=== PATIENT | female | born 1940 | race Caucasian/White ===

== ENCOUNTER 2017-01-28 08:17 | Observation (INO) | payer MEDICARE, BC ==
--- NOTE | 2017-01-28 09:18 | EDM.PDOC ---
ED HPI GI/ABDOMINAL - General Chief Complaint: Gastrointestinal Problem Stated Complaint: RECTAL BLEEDING Time Seen by Provider: 01/28/17 08:34 Source of Information: Reports: Patient, RN notes reviewed - History of Present Illness INITIAL COMMENTS - FREE TEXT/NARRATIVE: 76-year-old female was in with diarrhea and GI bleeding. She had onset of diarrhea yesterday afternoon. This was associated with some upper, pain and cramping. She then states around midnight last night, about 9 hours ago she had onset blood with the diarrhea. She states this was bright red. This continued every one to 2 hours throughout the remainder of the night continuing this morning. At this point in time she is pain-free. She's had some nausea but no vomiting. She's had no chest pain or difficulty breathing. She does have history of coronary artery disease, is on Plavix and 81 mg aspirin daily with history of 7 stents. No known history of prior GI bleeding. - Related Data Allergies/ADRs: Allergies Allergy/AdvReac Type Severity Reaction Status Date / Time No Known Allergies Allergy Verified 01/28/17 08:31 Home Meds: Home Meds Acetaminophen [Tylenol Extra Strength] 1,000 mg PO DAILY 01/28/17 [History] Carvedilol [Coreg] 6.25 mg PO BID 01/28/17 [History] Clopidogrel [Plavix] 75 mg PO DAILY 01/28/17 [History] Folic Acid 1 mg PO DAILY 01/28/17 [History] Pantoprazole Sodium [Protonix] 20 mg PO DAILY 01/28/17 [History] Rosuvastatin [Crestor] 20 mg PO DAILY 01/28/17 [History] Solifenacin [Vesicare] 5 mg PO DAILY 01/28/17 [History] amLODIPine [Norvasc] 10 mg PO DAILY 01/28/17 [History] traMADol [Ultram] 100 mg PO DAILY 01/28/17 [History] Past Medical History Cardiovascular History: Reports: Hypertension, [place], 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: Musculoskeletal History: Reports: Arthritis, Back pain, chronic Neurological History: Reports: CVA - Infectious Disease History Infectious Disease History: Reports: Chicken pox, Measles - Past Surgical History GI Surgical History: Reports: Appendectomy, Cholecystectomy Social & Family History - Tobacco Use Smoking Status *Q: Never Smoker Second Hand Smoke Exposure: No - Caffeine Use Caffeine Use: Reports: Coffee - Alcohol Use Days Per Week of Alcohol Use: 0 - Recreational Drug Use Recreational Drug Use: No ED ROS GENERAL - Review of Systems Review Of Systems: See Below Constitutional: Denies: fever, chills, diaphoresis HEENT: Denies: Sinus problem, Throat pain Respiratory: Denies: Shortness of Breath, Pleuritic Chest Pain Cardiovascular: Denies: Chest pain GI/Abdominal: Reports: Abdominal pain (Gone), Diarrhea, Hematochezia, Nausea ( Gone). Denies: Vomiting Musculoskeletal: Denies: back pain, joint pain Skin: Denies: rash Neurological: Reports: Dizziness (Mild). Denies: Difficulty Walking, Weakness ED EXAM, GI/ABD - Physical Exam Exam: See Below General Appearance: alert, no apparent distress Throat/Mouth: Other (Oral mucosa mildly dry) Neck: supple, full range of motion Respiratory/Chest: no respiratory distress, lungs clear, normal breath sounds Cardiovascular: regular rate, rhythm GI/Abdominal: soft, tenderness (Very mild upper midepigastric tenderness). No: guarding, rebound Rectal (Female) Exam: Bloody stool (small amt of bright red blood present), Heme + stool Extremities: normal inspection. No: pedal edema, leg pain Neurological: alert, oriented, no motor/sensory deficits Skin Exam: Warm, Dry, Normal color EKG INTERPRETATION EKG Date: 01/28/17 Rhythm: NSR [place]: normal P-wave: present QRS: other (Left anterior fascicular block) ST-T: other (T-wave inversion aVL) Course - Vital Signs Last Recorded V/S: Last Vital Signs Temp 98.8 F 01/28/17 08:27 Pulse 92 01/28/17 08:27 Resp 18 01/28/17 08:27 BP 167/91 H 01/28/17 08:27 Pulse Ox 95 01/28/17 08:27 Orthostatic Blood Pressure [ 152/81 Standing] Orthostatic Blood Pressure [ 156/94 Sitting] Orthostatic Blood Pressure [ 177/90 Supine] - Orders/Labs/Meds Orders: Active Orders 24 hr Category Date Time Status EKG 12 Lead [EKG Documentation Completion] [RC] STAT Care 01/28/17 08:42 Active EKG 12 Lead [EKG Documentation Completion] [RC] STAT Care 01/28/17 08:43 Inactive Orthostatic Vital Signs [RC] ASDIRECTED Care 01/28/17 09:12 Active TYPE AND SCREEN [BBK] Stat Lab 01/28/17 09:30 Received HYDROmorphone [Dilaudid] Med 01/28/17 10:05 Once 0.5 mg IVPUSH ONETIME ONE Sodium Chloride 0.9% [Normal Saline] 1,000 ml Med 01/28/17 08:45 Active IV ASDIRECTED Medication Orders Sodium Chloride (Normal Saline) 1,000 mls @ 150 mls/hr IV ASDIRECTED [facility] Last Admin: 01/28/17 09:40 Dose: 150 mls/hr Labs: Laboratory Tests 01/28/17 01/28/17 01/28/17 Range/Units 09:30 09:30 09:30 WBC 15.70 H (3.98-10.04) K/mm3 RBC 4.90 (3.98-5.22) M/mm3 Hgb 15.0 (11.2-15.7) gm/L Hct 44.4 (34.1-44.9) % MCV 90.6 (79.4-94.8) fl MCH 30.6 (25.6-32.2) pg MCHC 33.8 (32.2-35.5) g/dl RDW Std Deviation 41.8 (36.4-46.3) fL Plt Count 229 (182-369) K/mm3 MPV 10.7 (9.4-12.3) fl Neut % (Auto) 73.2 H (34.0-71.1) % Lymph % (Auto) 18.7 L (19.3-51.7) % [place] % (Auto) 6.8 (4.7-12.5) % Eos % (Auto) 0.8 (0.7-5.8) Baso % (Auto) 0.2 (0.1-1.2) % Neut # (Auto) 11.50 H (1.56-6.13) K/mm3 Lymph # (Auto) 2.93 (1.18-3.74) K/mm3 [place] # (Auto) 1.07 H (0.24-0.36) K/mm3 Eos # (Auto) 0.13 (0.04-0.36) K/mm3 Baso # (Auto) 0.03 (0.01-0.08) K/mm3 PT 10.9 (8.0-13.0) SECONDS INR 1.00 APTT 27 (22-36) SECONDS Sodium 143 (136-145) mEq/L Potassium 3.3 L (3.5-5.1) mEq/L Chloride 105 (98-107) mEq/L Carbon Dioxide 27 (21-32) mEq/L Anion Gap 14.3 (5-15) BUN 15 (7-18) mg/dL Creatinine 0.8 (0.55-1.02) mg/dL Est Cr Clr Drug Dosing 42.30 mL/min Estimated GFR (MDRD) > 60 (>60) mL/min BUN/Creatinine Ratio 18.8 H (14-18) Glucose 137 H (83-115) mg/dL Calcium 8.9 (8.5-10.1) mg/dL Total Bilirubin 1.2 H (0.2-1.0) mg/dL AST 20 (15-37) U/L ALT 32 (14-59) U/L Alkaline Phosphatase 89 (46-116) U/L Total Protein 7.2 (6.4-8.2) g/dl Albumin 3.7 (3.4-5.0) g/dl Globulin 3.5 gm/dL Albumin/Globulin Ratio 1.1 (1-2) Meds: Medications Generic Name Dose Route Start Last Admin Trade Name Freq PRN Reason Stop Dose Admin Sodium Chloride 1,000 mls @ 150 mls/hr 01/28/17 08:45 01/28/17 09:40 Normal Saline IV 150 mls/hr ASDIRECTED [facility] Administration - Re-Assessments/Exams Free Text/Narrative Re-Assessment/Exam: 01/28/17 10;00. No further bleeding or diarrhea in the time she has been here. She states this was about every hr for about the last 9 hrs. As noted on plavix and aspirin with hx of 7 cardiac stents. Hgb is good, other labs are as documented. Will admit Obs. status. Departure - Departure Time of Disposition: 10:00 Disposition: Admitted As Inpatient 65 Condition: fair Clinical Impression: GI bleeding Qualifiers: GI bleed type/associated pathology: unspecified gastrointestinal hemorrhage type Qualified Code(s): K92.2 - Gastrointestinal hemorrhage, unspecified Referrals: Ranjan Lau MD [Primary Care Provider] - Forms: ED Department Discharge ED Communication - Discussed Case With (1) Discussed Case With (1): Admitting Provider (Dr Pettit, decision to admit at about 10:00.) - My Orders Last 24 Hours: My Active Orders 01/28/17 08:42 EKG 12 Lead [EKG Documentation Completion] [RC] STAT 01/28/17 08:43 EKG 12 Lead [EKG Documentation Completion] [RC] STAT 01/28/17 08:45 Sodium Chloride 0.9% [Normal Saline] 1,000 ml IV ASDIRECTED 01/28/17 09:12 Orthostatic Vital Signs [RC] ASDIRECTED 01/28/17 09:30 TYPE AND SCREEN [BBK] Stat 01/28/17 10:05 HYDROmorphone [Dilaudid] 0.5 mg IVPUSH ONETIME ONE - Assessment/Plan Last 24 Hours: My Active Orders 01/28/17 08:42 EKG 12 Lead [EKG Documentation Completion] [RC] STAT 01/28/17 08:43 EKG 12 Lead [EKG Documentation Completion] [RC] STAT 01/28/17 08:45 Sodium Chloride 0.9% [Normal Saline] 1,000 ml IV ASDIRECTED 01/28/17 09:12 Orthostatic Vital Signs [RC] ASDIRECTED 01/28/17 09:30 TYPE AND SCREEN [BBK] Stat 01/28/17 10:05 HYDROmorphone [Dilaudid] 0.5 mg IVPUSH ONETIME ONE
[2017-01-28] MEDS: Sodium Chloride 0.9% 1,000 ML IV SCH ×2 (09:40→17:54)
[2017-01-28] MEDS ORDERED: HYDROmorphone 1 MG/ML Syringe IVPUSH ONE (10:05)
[2017-01-28] MEDS ORDERED: Diphtheria,Pertussis(Acell),Tetanus Vaccine 0.5 ML SDV inactive IM ONE (10:49)
--- NOTE | 2017-01-28 13:43 | PCM.HP ---
H&P History of Present Illness - General Date of Service: 01/28/17 Admit Problem/Dx: Admission Diagnosis/Problem Admission Diagnosis/Problem Hemorrhagic diarrhea Source of Information: Patient, Provider History Limitations: Reports: No limitations - History of Present Illness Initial Comments - Free Text/Narative: 76 year old female with chronic diarrhea, has had loose stool with mucous. This changed last night to stool with mucous and blood. The patient was unaware that it was not normal. She did not experience fever or chills however did have transient abdominal pain evening. She has experienced nausea without vomiting. Currently her Hgb is stable, stool has been sent for culture and a general surgery consult for a colonoscopy has been ordered. Onset of Symptoms: Reports: unknown/unsure Duration of Symptoms: Reports: Chronic, Getting worse Location: Reports: abdomen Quality: Reports: Same as previous episode Severity: moderate Improves with: Reports: None Worsens with: Reports: None Associated Symptoms: Reports: malaise, nausea/vomiting, weakness left back Pain Score (Numeric/FACES): 8 - Related Data Allergies/Adverse Reactions: Allergies Allergy/AdvReac Type Severity Reaction Status Date / Time No Known Allergies Allergy Verified 01/28/17 08:31 Home Medications: Home Meds Acetaminophen [Tylenol Extra Strength] 1,000 mg PO DAILY 01/28/17 [History] Carvedilol [Coreg] 6.25 mg PO BID 01/28/17 [History] Clopidogrel [Plavix] 75 mg PO DAILY 01/28/17 [History] Folic Acid 1 mg PO DAILY 01/28/17 [History] Losartan/Hydrochlorothiazide [Hyzaar 50-12.5 Tablet] 1 each PO DAILY 01/28/17 [ History] Pantoprazole Sodium [Protonix] 20 mg PO DAILY 01/28/17 [History] Rosuvastatin [Crestor] 20 mg PO DAILY 01/28/17 [History] Solifenacin [Vesicare] 5 mg PO DAILY 01/28/17 [History] amLODIPine [Norvasc] 5 mg PO DAILY 01/28/17 [History] traMADol [Ultram] 100 mg PO DAILY 01/28/17 [History] Past Medical History Cardiovascular History: Reports: Hypertension, [place], Stents Gastrointestinal History: Reports: Chronic constipation, Chronic diarrhea Genitourinary History: Reports: Other (see below) Other Genitourinary History: frequency and urgency; 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 hard of hearing. wears glasses GI Surgical History: Reports: Appendectomy, Cholecystectomy Female Surgical History: Reports: Hysterectomy Social & Family History - Family History Cardiac: Reports: [place] GI: Reports: Cirrhosis - Tobacco Use Smoking Status *Q: Never Smoker Second Hand Smoke Exposure: No - Caffeine Use Caffeine Use: Reports: None - Alcohol Use Days Per Week of Alcohol Use: 0 - Recreational Drug Use Recreational Drug Use: No H&P Review of Systems - Review of Systems: Review Of Systems: See Below General: Reports: fever, weakness. Denies: chills HEENT: Reports: no symptoms Pulmonary: Reports: No Symptoms Cardiovascular: Reports: no symptoms Gastrointestinal: Reports: Bloody stool, Diarrhea, Mucous in stool Musculoskeletal: Reports: no symptoms Skin: Reports: no symptoms Psychiatric: Reports: no symptoms Neurological: Reports: Dizziness Hematologic/Lymphatic: Reports: no symptoms Immunologic: Reports: no symptoms Exam - Exam Exam: See Below - Vital Signs Vital Signs: Last Vital Signs Temp 37.1 C 01/28/17 08:27 Pulse 77 01/28/17 10:51 Resp 18 01/28/17 10:51 BP 165/77 H 01/28/17 10:51 Pulse Ox 95 01/28/17 10:51 Weight: 72.575 kg - Exam Quality Assessment: DVT prophylaxis General: alert, oriented, cooperative HEENT: EACs clear, Nares patent, Normal nasal septum, Pupils equal, Pupils reactive Neck: supple, trachea midline Lungs: Normal respiratory effort Cardiovascular: regular rate, regular rhythm Abdomen: normal bowel sounds, soft (Female) Exam: Deferred Rectal (Female) Exam: Deferred Back Exam: normal inspection Extremities: normal pulses Skin: warm Neurological: cranial nerves intact Neuro Extensive - Mental Status: alert, oriented x3, normal mood/affect, normal cognition, memory intact Neuro Extensive - Motor, Sensory, Reflexes: CN II-XII intact Psychiatric: alert, normal affect, normal mood - Patient Data Result Diagrams: 01/29/17 07:00 01/29/17 07:00 *Q Meaningful Use (ADM) - VTE *Q VTE Criteria *Q: - Stroke *Q Stroke Criteria *Q: - AMI *Q AMI Criteria *Q: Problem List Initiated/Reviewed/Updated: Yes Orders Last 24hrs: Active Orders 24 hr Category Date Time Status Vaccines to be Administered [RC] .PRN Care 01/28/17 10:49 Active Medication Orders Sodium Chloride (Normal Saline) 1,000 mls @ 150 mls/hr IV ASDIRECTED [facility] Last Admin: 01/28/17 09:40 Dose: 150 mls/hr Assessment/Plan Comment:: Impression: Chronic diarrhea/constipation Rectal bleeding Chronic CAD with PCI HTN Hyperlipidemia Plan: Obs admission with telemetry Clear Liquids Gen surgery consult, re: colonoscopy Follow H/H Home meds Comprehensive stool studies Change meds where possible to IV Hydrate T and C if Hgb drops currently stable DVT/GI prophylaxis
[2017-01-28] MEDS ORDERED: Ondansetron 4 MG/2 ML SDV IVPUSH PRN (15:01)
[2017-01-28] MEDS ORDERED: Clopidogrel 75 MG Tab PO SCH (15:45)
[2017-01-28] MEDS: Carvedilol 6.25 MG Tab PO SCH ×2 (15:52→20:00)
[2017-01-28] MEDS: Pantoprazole 40 MG Vial IVPUSH SCH (15:52)
[2017-01-28] MEDS: Trospium 20 MG Tab PO SCH (16:01)
[2017-01-28] MEDS ORDERED: Polyethylene Glycol/Electrolytes 4,000 ML Bottle PO ONE (19:09)
--- NOTE | 2017-01-28 19:12 | PCM.CONSN ---
- General Info Date of Service: 01/28/17 - Patient Data Vitals - most recent: Last Vital Signs Temp 98.8 F 01/28/17 08:27 Pulse 65 01/28/17 15:52 Resp 18 01/28/17 10:51 BP 107/86 01/28/17 15:52 Pulse Ox 95 01/28/17 10:51 Weight - most recent: 72.575 kg I&O - last 24 hours: Intake & Output 01/28/17 01/28/17 01/28/17 07:59 15:59 23:59 Intake Total 100 Balance 100 Lab Results last 24 hrs: Laboratory Results - last 24 hr 01/28/17 Range/Units 18:00 Hgb 14.1 (11.2-15.7) gm/L Yusuf Results last 24 hrs: Microbiology 01/28/17 14:59 Helicobacter pylori Antigen - Final Stool / Feces - Stool, Formed Positive H Pylori Ag Med Orders - Current: Current Medications Carvedilol (Coreg) 6.25 mg PO BID [facility] Last Admin: 01/28/17 15:52 Dose: 6.25 mg Sodium Chloride (Normal Saline) 1,000 mls @ 150 mls/hr IV ASDIRECTED [facility] Last Admin: 01/28/17 17:54 Dose: 150 mls/hr Ondansetron HCl (Zofran) 4 mg IVPUSH Q8H PRN PRN Reason: Nausea/Vomiting Pantoprazole Sodium (Protonix Iv) 40 mg IVPUSH Q12H [facility] Last Admin: 01/28/17 15:52 Dose: 40 mg Polyethylene Glycol/Electrolytes (Golytely) 4,000 ml PO ONETIME ONE Stop: 01/28/17 19:10 Rosuvastatin Calcium (Crestor) 20 mg PO DAILY [facility] Temazepam (Restoril) 7.5 mg PO BEDTIME PRN PRN Reason: insomnia Trospium (Sanctura) 20 mg PO BIDAC [facility] Last Admin: 01/28/17 16:01 Dose: 20 mg Discontinued Medications Clopidogrel Bisulfate (Plavix) 75 mg PO DAILY [facility] Last Admin: 01/28/17 15:51 Dose: 75 mg Diphtheria/Tetanus/Acell Pertussis (Boostrix) 0.5 ml IM .ONCE ONE Stop: 01/28/17 10:50 Last Admin: 01/28/17 14:47 Dose: Not Given Hydromorphone HCl (Dilaudid) 0.5 mg IVPUSH ONETIME ONE Stop: 01/28/17 10:06 Last Admin: 01/28/17 10:18 Dose: 0.5 mg Consult PN Assessment/Plan Procedures: Procedures ASSAY OF AMYLASE (06/15/14) ASSAY OF CK (CPK) (08/03/14) ASSAY OF LIPASE (06/15/14) ASSAY OF NATRIURETIC PEPTIDE (06/15/14) ASSAY OF TROPONIN QUANT (08/03/14) ASSAY THYROID STIM HORMONE (02/24/14) CHEST X-RAY 1 VIEW FRONTAL (08/03/14) CHEST X-RAY 2VW FRONTAL&LATL (06/15/14) COMPLETE CBC W/AUTO DIFF WBC (08/03/14) COMPREHEN METABOLIC PANEL (08/03/14) CREATINE MB FRACTION (08/03/14) CT ABD & PELVIS W/O CONTRAST (06/15/15) CT ANGIOGRAPHY CHEST (06/15/14) CT HEAD/BRAIN W/O DYE (02/24/14) CT LUMBAR SPINE W/O DYE (06/23/15) DXA BONE DENSITY AXIAL (10/31/15) ECG MONIT/REPRT UP TO 48 HRS (01/26/16) ECG MONIT/REPRT UP TO 48 HRS (01/26/16) ELECTROCARDIOGRAM TRACING (08/03/14) EMERGENCY DEPT VISIT (08/03/14) EMERGENCY DEPT VISIT (02/24/14) FIBRIN DEGRADATION QUANT (02/24/16) PROTHROMBIN TIME (08/03/14) ROUTINE VENIPUNCTURE (02/24/16) THER/PROPH/DIAG INJ IV PUSH (02/24/14) TX/PRO/DX INJ NEW DRUG ADDON (02/24/14) TX/PRO/DX INJ SAME DRUG ANESTHESIOLOGIST PHYSICIAN (02/24/14) URINALYSIS AUTO W/SCOPE (08/03/14) URINE BACTERIA CULTURE (04/21/14) Problem List Initiated/Reviewed/Updated: Yes My Orders last 24 hours: My Active Orders 01/28/17 19:09 KCl/Na Sulf,Bicarb,Cl/PEG 3351 [GoLytely] 4,000 ml PO ONETIME ONE 01/28/17 Breakfast Nothing per Oral After Midnight Diet [DIET] Plan: surgical consult dictated CAN
[2017-01-28] MEDS: Temazepam 7.5 MG Cap PO PRN (20:00)
[2017-01-29] MEDS: Sodium Chloride 0.9% 1,000 ML IV SCH (00:48)
[2017-01-29] MEDS: Pantoprazole 40 MG Vial IVPUSH SCH ×2 (02:30→15:15)
[2017-01-29] MEDS: Trospium 20 MG Tab PO SCH ×2 (05:01→15:15)
--- NOTE | 2017-01-29 06:56 | CONS ---
CONSULTING PHYSICIAN: Asad Parada MD DATE OF CONSULTATION: 01/28/2017 HISTORY OF PRESENT ILLNESS: A 76-year-old female, who has been having numerous bowel movements at least 10 a day for the last year that has severely limited her ability to leave the house. The last week she has been having some pain and rectal bleeding associated with it. The stools that she has been having have been quite clear with a large amount of mucus. She has had some nausea, but no vomiting with this. Denies any weight loss. REVIEW OF SYSTEMS: Indicates no fever or chills. Does have some nausea, but no vomiting. Does have rectal bleeding and diarrhea. No joint aches and pain, dizziness or fainting, but has been falling and has a bruise on her right side where she fell against the furniture. No shortness of breath or chest pain. SOCIAL HISTORY: Never smoked. Reports some cough. She had no alcohol use. PAST MEDICAL HISTORY: Cardiovascular disease with some 7 stents on Plavix. She has had arthritis. She has history of CVA. PAST SURGICAL HISTORY: Appendectomy, cholecystectomy, and hysterectomy. FAMILY HISTORY: Not known. PHYSICAL EXAMINATION: GENERAL: Reveals an alert and cooperative female. VITAL SIGNS: Temperature 98.8, pulse 92, respirations 18, and blood pressure 176/90. HEENT: Eyes sclerae white. Extraocular muscle motion normal. Oral cavity, healthy mucous membrane with mouth and tongue. NECK: Supple. No nodes. No thyromegaly. LUNGS: Clear. No rales or rhonchi. HEART: Tones regular rate. No S3, S4, jugular venous distention. ABDOMEN: Shows some mild tenderness along the transverse colon, especially in the sigmoid area. No guarding or rebound. RECTAL: Exam as per admitting physician, bloody stools, small amount of bright red blood. EXTREMITIES: No angulation deformities. NEUROLOGIC: Alert and oriented. No sensory motor deficit. Moves all 4. SKIN: Warm and dry. PSYCH: She is alert and normal. LABORATORY DATA: Reviewed. ASSESSMENT: 1. Chronic diarrhea. 2. Coronary artery disease. 3. Rectal bleeding. PLAN: For colonoscopy. Discussed the procedure, risks, and complications. She understands and consents. MMODAL /[id number]
--- NOTE | 2017-01-29 07:10 | PCM.PREANE ---
Preanesthetic Assessment - Anesthesia/Transfusion/Family Hx Anesthesia History: Prior Anesthesia Without Reaction Family History of Anesthesia Reaction: No Transfusion History: No Prior Transfusion(s) Intubation History: Unknown - Review of Systems General: No Symptoms, Appetite (Decreased) Cardiovascular: No Symptoms (AL's noted in the past. CAD with 7 stents placed. Last Plavix dose noted on Saturday01/27/17), Dyspnea on Exertion, Lightheadedness (A little dizziness noted upon admission via H/P.) Gastrointestinal: Abdominal pain (on admission but currently better per patient. ), Diarrhea (with bloody stools noted upon admission.) Neurological: No Symptoms (History of CVA/Has had 3 strokes, most recent being in 2012), Tingling (in all four extremities noted per patient), Gait Disturbance (since stroke, and penmanship is bad since strokes.) Other: Reports: None (History of chronic back pain), Easy Bleeding, Easy Bruising (Patient on home meds of plavix for history of 7 stents, CAD, AL, and HTN.), Neck Pain (Recent neck pain noted for past 6 months.) - Physical Assessment NPO Status Date: 01/28/17 NPO Status Time: 23:55 Pulse: 80 O2 Sat by Pulse Oximetry: 95 Respiratory Rate: 16 Blood Pressure: 148/83 Temperature: 36.6 C Vital Signs: Last Vital Signs Temp 36.6 C 01/29/17 05:03 Pulse 80 01/29/17 05:03 Resp 16 01/29/17 05:03 BP 148/83 H 01/29/17 05:03 Pulse Ox 95 01/29/17 05:03 Height: 1.5 m Weight: 75.478 kg ASA Class: 3 Mental Status: Alert & Oriented x3 Airway Class: Mallampati = 3 Dentition: Reports: Dentures (upper), Caries Thyro-Mental Finger Breadths: 3 Mouth Opening Finger Breadths: 3 ROM/Head Extension: Full Lungs: Clear to auscultation, Normal respiratory effort, Decreased breath sounds , Crackles (in the bases noted) Cardiovascular: Regular Rate, Regular Rhythm - Lab Values: Laboratory Last Values WBC 15.70 K/mm3 (3.98-10.04) H 01/28/17 09:30 RBC 4.90 M/mm3 (3.98-5.22) 01/28/17 09:30 Hgb 14.1 gm/L (11.2-15.7) 01/28/17 18:00 Hct 44.4 % (34.1-44.9) 01/28/17 09:30 MCV 90.6 fl (79.4-94.8) 01/28/17 09:30 MCH 30.6 pg (25.6-32.2) 01/28/17 09:30 MCHC 33.8 g/dl (32.2-35.5) 01/28/17 09:30 RDW Std Deviation 41.8 fL (36.4-46.3) 01/28/17 09:30 Plt Count 229 K/mm3 (182-369) 01/28/17 09:30 MPV 10.7 fl (9.4-12.3) 01/28/17 09:30 Neut % (Auto) 73.2 % (34.0-71.1) H 01/28/17 09:30 Lymph % (Auto) 18.7 % (19.3-51.7) L 01/28/17 09:30 Howell % (Auto) 6.8 % (4.7-12.5) 01/28/17 09:30 Eos % (Auto) 0.8 (0.7-5.8) 01/28/17 09:30 Baso % (Auto) 0.2 % (0.1-1.2) 01/28/17 09:30 Neut # (Auto) 11.50 K/mm3 (1.56-6.13) H 01/28/17 09:30 Lymph # (Auto) 2.93 K/mm3 (1.18-3.74) 01/28/17 09:30 Howell # (Auto) 1.07 K/mm3 (0.24-0.36) H 01/28/17 09:30 Eos # (Auto) 0.13 K/mm3 (0.04-0.36) 01/28/17 09:30 Baso # (Auto) 0.03 K/mm3 (0.01-0.08) 01/28/17 09:30 PT 10.9 SECONDS (8.0-13.0) 01/28/17 09:30 INR 1.00 01/28/17 09:30 APTT 27 SECONDS (22-36) 01/28/17 09:30 Sodium 143 mEq/L (136-145) 01/28/17 09:30 Potassium 3.3 mEq/L (3.5-5.1) L 01/28/17 09:30 Chloride 105 mEq/L (98-107) 01/28/17 09:30 Carbon Dioxide 27 mEq/L (21-32) 01/28/17 09:30 Anion Gap 14.3 (5-15) 01/28/17 09:30 BUN 15 mg/dL (7-18) 01/28/17 09:30 Creatinine 0.8 mg/dL (0.55-1.02) 01/28/17 09:30 Est Cr Clr Drug Dosing 42.30 mL/min 01/28/17 09:30 Estimated GFR (MDRD) > 60 mL/min (>60) 01/28/17 09:30 BUN/Creatinine Ratio 18.8 (14-18) H 01/28/17 09:30 Glucose 137 mg/dL (83-115) H 01/28/17 09:30 Calcium 8.9 mg/dL (8.5-10.1) 01/28/17 09:30 Total Bilirubin 1.2 mg/dL (0.2-1.0) H 01/28/17 09:30 AST 20 U/L (15-37) 01/28/17 09:30 ALT 32 U/L (14-59) 01/28/17 09:30 Alkaline Phosphatase 89 U/L (46-116) 01/28/17 09:30 Total Protein 7.2 g/dl (6.4-8.2) 01/28/17 09:30 Albumin 3.7 g/dl (3.4-5.0) 01/28/17 09:30 Globulin 3.5 gm/dL 01/28/17 09:30 Albumin/Globulin Ratio 1.1 (1-2) 01/28/17 09:30 Blood Type B POSITIVE 01/28/17 09:30 Gel Antibody Screen Negative 01/28/17 09:30 Lab values reviewed and noted from above. - Imaging/EKG Impressions: EKG: NSR with left anterior fascicular block noted. - Allergies Allergies/Adverse Reactions: Allergies Allergy/AdvReac Type Severity Reaction Status Date / Time No Known Allergies Allergy Verified 01/28/17 08:31 - Anesthesia Plan Pre-Op Medication Ordered: Beta Maddy Beta Maddy: Carvedilol Med Last Dose Date: 01/28/17 Med Last Dose Time: 15:52 - Acknowledgements Anesthesia Type Planned: MAC Pt an Appropriate Candidate for the Planned Anesthesia: Yes Alternatives and Risks of Anesthesia Discussed w Pt/Guardian: Yes Pt/Guardian Understands and Agrees with Anesthesia Plan: Yes PreAnesthesia Questionnaire Cardiovascular History: Reports: Hypertension, AL, Stents Gastrointestinal History: Reports: Chronic constipation, Chronic diarrhea Genitourinary History: Reports: Other (see below) Other Genitourinary History: frequency and urgency; wears depends at night [employer] History: Reports: Musculoskeletal History: Reports: Arthritis, Back pain, chronic Neurological History: Reports: CVA Psychiatric History: Reports: Anxiety, Depression - Infectious Disease History Infectious Disease History: Reports: Chicken pox, Influenza, Measles - Past Surgical History Other HEENT Surgeries/Procedures: ears plugged w/ wax. hard of hearing. wears glasses GI Surgical History: Reports: Appendectomy, Cholecystectomy Female Surgical History: Reports: Hysterectomy - SUBSTANCE USE Smoking Status *Q: Never Smoker Second Hand Smoke Exposure: No Days Per Week of Alcohol Use: 0 Recreational Drug Use History: No - HOME MEDS Home Medications: Home Meds Acetaminophen [Tylenol Extra Strength] 1,000 mg PO DAILY 01/28/17 [History] Carvedilol [Coreg] 6.25 mg PO BID 01/28/17 [History] Clopidogrel [Plavix] 75 mg PO DAILY 01/28/17 [History] Folic Acid 1 mg PO DAILY 01/28/17 [History] Losartan/Hydrochlorothiazide [Hyzaar 50-12.5 Tablet] 1 each PO DAILY 01/28/17 [ History] Pantoprazole Sodium [Protonix] 20 mg PO DAILY 01/28/17 [History] Rosuvastatin [Crestor] 20 mg PO DAILY 01/28/17 [History] Solifenacin [Vesicare] 5 mg PO DAILY 01/28/17 [History] amLODIPine [Norvasc] 5 mg PO DAILY 01/28/17 [History] traMADol [Ultram] 100 mg PO DAILY 01/28/17 [History] - CURRENT (IN HOUSE) MEDS Current Meds: Current Medications Carvedilol (Coreg) 6.25 mg PO BID [facility] Last Admin: 01/28/17 20:00 Dose: 6.25 mg Sodium Chloride (Normal Saline) 1,000 mls @ 150 mls/hr IV ASDIRECTED [facility] Last Admin: 01/29/17 00:48 Dose: 150 mls/hr Ondansetron HCl (Zofran) 4 mg IVPUSH Q8H PRN PRN Reason: Nausea/Vomiting Pantoprazole Sodium (Protonix Iv) 40 mg IVPUSH Q12H [facility] Last Admin: 01/29/17 02:30 Dose: 40 mg Rosuvastatin Calcium (Crestor) 20 mg PO DAILY [facility] Temazepam (Restoril) 7.5 mg PO BEDTIME PRN PRN Reason: insomnia Last Admin: 01/28/17 20:00 Dose: 7.5 mg Trospium (Sanctura) 20 mg PO BIDAC [facility] Last Admin: 01/29/17 05:01 Dose: Not Given Discontinued Medications Clopidogrel Bisulfate (Plavix) 75 mg PO DAILY [facility] Last Admin: 01/28/17 15:51 Dose: 75 mg Diphtheria/Tetanus/Acell Pertussis (Boostrix) 0.5 ml IM .ONCE ONE Stop: 01/28/17 10:50 Last Admin: 01/28/17 14:47 Dose: Not Given Hydromorphone HCl (Dilaudid) 0.5 mg IVPUSH ONETIME ONE Stop: 01/28/17 10:06 Last Admin: 01/28/17 10:18 Dose: 0.5 mg Polyethylene Glycol/Electrolytes (Golytely) 4,000 ml PO ONETIME ONE Stop: 01/28/17 19:10 Last Admin: 01/28/17 19:52 Dose: 4,000 ml
[2017-01-29] MEDS: Rosuvastatin 10 MG Tab PO SCH (09:43)
[2017-01-29] MEDS: Carvedilol 6.25 MG Tab PO SCH ×2 (10:23→20:14)
[2017-01-29] MEDS ORDERED: Lidocaine 1% 6 ML ONE (10:46)
[2017-01-29] MEDS ORDERED: fentaNYL 100 MCG/2 ML SDV ONE (10:47)
[2017-01-29] MEDS ORDERED: Propofol 200 MG/20 ML SDV ONE (10:47)
[2017-01-29] MEDS: Potassium Chloride 10% 20 MEQ/15 ML Soln 15 ML UD Cup PO SCH ×2 (11:33→20:14)
[2017-01-29] MEDS ORDERED: Lactated Ringers 1,000 ML ONE (12:09)
--- NOTE | 2017-01-29 12:40 | PCM.PN ---
- General Info Date of Service: 01/29/17 Functional Status: Reports: tolerating diet, ambulating, urinating - Review of Systems General: Reports: Weakness HEENT: Reports: no symptoms Pulmonary: Reports: no symptoms Cardiovascular: Reports: No Symptoms Gastrointestinal: Reports: No symptoms Genitourinary: Reports: no symptoms Musculoskeletal: Reports: no symptoms Skin: Reports: no symptoms Neurological: Reports: No Symptoms Psychiatric: Reports: no symptoms - Patient Data Vitals - most recent: Last Vital Signs Temp 37.2 C 01/29/17 08:14 Pulse 83 01/29/17 08:14 Resp 16 01/29/17 08:14 BP 162/81 H 01/29/17 08:14 Pulse Ox 96 01/29/17 08:14 Weight - most recent: 75.478 kg I&O - last 24 hours: Intake & Output 01/28/17 01/29/17 01/29/17 22:59 06:59 14:59 Intake Total 100 3930 Output Total 1300 Balance 100 2630 Lab Results last 24 hrs: Laboratory Results - last 24 hr 01/28/17 01/29/17 01/29/17 Range/Units 18:00 07:00 07:00 Hgb 14.1 13.0 (11.2-15.7) gm/L PT 10.7 (8.0-13.0) SECONDS INR 0.98 Sodium (136-145) mEq/L Potassium (3.5-5.1) mEq/L Chloride (98-107) mEq/L Carbon Dioxide (21-32) mEq/L Anion Gap (5-15) BUN (7-18) mg/dL Creatinine (0.55-1.02) mg/dL Est Cr Clr Drug Dosing mL/min Estimated GFR (MDRD) (>60) mL/min BUN/Creatinine Ratio (14-18) Glucose (83-115) mg/dL Calcium (8.5-10.1) mg/dL 01/29/17 Range/Units 07:00 Hgb (11.2-15.7) gm/L PT (8.0-13.0) SECONDS INR Sodium 145 (136-145) mEq/L Potassium 2.9 L (3.5-5.1) mEq/L Chloride 107 (98-107) mEq/L Carbon Dioxide 26 (21-32) mEq/L Anion Gap 14.9 (5-15) BUN 7 (7-18) mg/dL Creatinine 0.6 (0.55-1.02) mg/dL Est Cr Clr Drug Dosing 56.40 mL/min Estimated GFR (MDRD) > 60 (>60) mL/min BUN/Creatinine Ratio 11.7 L (14-18) Glucose 107 (83-115) mg/dL Calcium 7.7 L (8.5-10.1) mg/dL Yusuf Results last 24 hrs: Microbiology 01/28/17 15:00 Rotavirus Antigen - Final Stool / Feces - Stool, Formed NEGATIVE ROTAVIRUS ANTIGEN 01/28/17 14:59 Helicobacter pylori Antigen - Final Stool / Feces - Stool, Formed Positive H Pylori Ag Med Orders - Current: Current Medications Carvedilol (Coreg) 6.25 mg PO BID [facility] Last Admin: 01/29/17 10:23 Dose: 6.25 mg Sodium Chloride (Normal Saline) 1,000 mls @ 150 mls/hr IV ASDIRECTED [facility] Last Admin: 01/29/17 00:48 Dose: 150 mls/hr Ondansetron HCl (Zofran) 4 mg IVPUSH Q8H PRN PRN Reason: Nausea/Vomiting Pantoprazole Sodium (Protonix Iv) 40 mg IVPUSH Q12H [facility] Last Admin: 01/29/17 02:30 Dose: 40 mg Potassium Chloride (Potassium Chloride Solution) 60 meq PO BID [facility] Last Admin: 01/29/17 11:33 Dose: 60 meq Rosuvastatin Calcium (Crestor) 20 mg PO DAILY [facility] Last Admin: 01/29/17 09:43 Dose: Not Given Temazepam (Restoril) 7.5 mg PO BEDTIME PRN PRN Reason: insomnia Last Admin: 01/28/17 20:00 Dose: 7.5 mg Trospium (Sanctura) 20 mg PO BIDAC [facility] Last Admin: 01/29/17 05:01 Dose: Not Given Discontinued Medications Clopidogrel Bisulfate (Plavix) 75 mg PO DAILY [facility] Last Admin: 01/28/17 15:51 Dose: 75 mg Diphtheria/Tetanus/Acell Pertussis (Boostrix) 0.5 ml IM .ONCE ONE Stop: 01/28/17 10:50 Last Admin: 01/28/17 14:47 Dose: Not Given Fentanyl (Sublimaze) Confirm Administered Dose 100 mcg .ROUTE .STK-MED ONE Stop: 01/29/17 10:48 Hydromorphone HCl (Dilaudid) 0.5 mg IVPUSH ONETIME ONE Stop: 01/28/17 10:06 Last Admin: 01/28/17 10:18 Dose: 0.5 mg Lidocaine HCl (Xylocaine-Mpf 1%) Confirm Administered Dose 6 mls @ as directed .ROUTE .STK-MED ONE Stop: 01/29/17 10:47 Lactated Ringer's (Ringers, Lactated) Confirm Administered Dose 1,000 mls @ as directed .ROUTE .STK-MED ONE Stop: 01/29/17 12:10 Polyethylene Glycol/Electrolytes (Golytely) 4,000 ml PO ONETIME ONE Stop: 01/28/17 19:10 Last Admin: 01/28/17 19:52 Dose: 4,000 ml Propofol (Diprivan 20 Ml) Confirm Administered Dose 200 mg .ROUTE .STK-MED ONE Stop: 01/29/17 10:48 - Exam Quality Assessment: DVT prophylaxis General: alert, oriented, cooperative, no acute distress HEENT: Pupils equal, Pupils reactive, EOMI Neck: supple, trachea midline Lungs: Normal respiratory effort Cardiovascular: Regular Rate Abdomen: bowel sounds present, soft, no tenderness, no distension (Female) Exam: Deferred Back Exam: normal inspection Extremities: normal pulses Skin: warm Neurological: no new focal deficit Psy/Mental Status: alert, normal affect, normal mood - Problem List Review Problem List Initiated/Reviewed/Updated: Yes - My Orders Last 24 Hours: My Active Orders 01/28/17 14:07 Code Status [Resuscitation Status] Routine 01/28/17 14:37 Antiembolic Devices [RC] DAILY ZOEY Hose [Antiembolic Hose] [OM.PC] Routine 01/28/17 15:00 Pantoprazole [ProTONIX IV] 40 mg IVPUSH Q12H 01/28/17 15:01 Ondansetron [Zofran] 4 mg IVPUSH Q8H PRN 01/28/17 15:03 Bedrest Bathroom Privileges [RC] ASDIRECTED 01/28/17 15:45 Carvedilol [Coreg] 6.25 mg PO BID 01/28/17 16:00 Trospium [Sanctura] 20 mg PO BIDAC 01/28/17 18:14 WBC, STOOL [OP] Routine 01/28/17 18:25 Temazepam [Restoril] 7.5 mg PO BEDTIME PRN 01/29/17 09:00 Rosuvastatin [Crestor] 20 mg PO DAILY 01/29/17 11:00 Potassium Chloride [Potassium Chloride Solution] 60 meq PO BID 01/29/17 Breakfast NPO After Midnight [Nothing per Oral After Midnight Diet] [DIET] - Plan Plan:: Impression/Plan: Chronic diarrhea with recent episode of bloody stool Hgb stable, prep with Golytely for Colonoscopy Colonoscopy today H pylori positive Start ATBs for H pylori post op Home meds DC 24 hours with completion of diagnostic procedure PCP/GI follow up TBA before DC Cardiology follow up TBA
--- NOTE | 2017-01-29 12:43 | PCM.OPNOTE ---
- General Post-Op/Procedure Note Date of Surgery/Procedure: 01/29/17 Operative Procedure(s): colonosocopy with bx Pre Op Diagnosis: gi bleed and chronic diarrhea Post-Op Diagnosis: Same Anesthesia Technique: MAC Primary Surgeon: Asad Parada EBL in mLs: 0 Complications: None Condition: Good Free Text/Narrative:: Intake & Output 01/28/17 01/29/17 01/29/17 23:59 07:59 15:59 Intake Total 100 3930 Output Total 1300 Balance 100 2630
--- NOTE | 2017-01-29 12:49 | PCM48HPAN ---
Post Anesthesia Note - EVALUATION WITHIN 48HRS OF ANESTHETIC Vital Signs in Normal Range: Yes Patient Participated in Evaluation: Yes Respiratory Function Stable: Yes Airway Patent: Yes Cardiovascular Function Stable: Yes Hydration Status Stable: Yes Pain Control Satisfactory: Yes Nausea and Vomiting Control Satisfactory: Yes Mental Status Recovered: Yes - COMMENTS/OBSERVATIONS Free Text/Narrative:: Patient awake, and responsive to verbal questions. Patient orientated to person , place, and time.
[2017-01-29] MEDS: Aspirin 81 MG Tab.EC PO SCH (14:19)
[2017-01-29] MEDS: Amoxicillin 500 MG Cap PO SCH (20:14)
[2017-01-29] MEDS: Temazepam 7.5 MG Cap PO PRN (20:15)
[2017-01-30] MEDS: Trospium 20 MG Tab PO SCH (06:00)
[2017-01-30] MEDS ORDERED: Pantoprazole 40 MG Tab.CR PO SCH (06:00)
--- NOTE | 2017-01-30 07:48 | OR ---
DATE OF OPERATION: 01/28/2017 SURGEON: Asad Parada MD PREOPERATIVE DIAGNOSIS: Rectal bleeding and chronic diarrhea. POSTOPERATIVE DIAGNOSIS: Rectal bleeding and chronic diarrhea. OPERATION PERFORMED: Colonoscopy to cecum with biopsy and collection of stool for analysis, done under IV sedation. FINDINGS: Moderate sigmoid diverticulosis, engorged internal hemorrhoids, and ulcerations scattered throughout the descending and sigmoid colon, and rectum was free of these ulcerations. The ulcerations were slightly raised with exudate. The cecum, ascending colon, transverse colon, and anoderm did not show any pathology. The ileum, around the ileocecal valve, there was also no acute process, was unable to cannulate the ileum. DESCRIPTION OF PROCEDURE: The patient was taken to the endoscopy room, connected to monitoring equipment, given IV sedation, and placed in the left lateral position. Perianal area showed internal and external hemorrhoids. Rectal exam showed good sphincter tone. Video Olympus colonoscope was introduced into the rectum and threaded up without problem to the cecum. The prep was excellent. [place] Cleansing Score grade A. Attempts to cannulate the ileum were unsuccessful. The scope was then slowly withdrawn collecting stool as the scope was withdrawn showing the cecum, ascending colon, transverse colon, descending colon, sigmoid colon, and rectum. The above noted was found. Biopsies of the ulcers were done at 50 cm. An aphthous ulcer was noted at 25 cm, and this was biopsied, the rectum which appeared to be normal was also biopsied. The stool was collected and sent for analysis, C. diff, toxigenic bacteria, ova and parasites. The patient tolerated the procedure and sent to recovery room in a stable condition. ANESTHESIA: ESTIMATED BLOOD LOSS: MMODAL /[id number]
--- NOTE | 2017-01-30 08:15 | PCM48HPAN ---
Post Anesthesia Note - EVALUATION WITHIN 48HRS OF ANESTHETIC Vital Signs in Normal Range: Yes Patient Participated in Evaluation: Yes Respiratory Function Stable: Yes Airway Patent: Yes Cardiovascular Function Stable: Yes Hydration Status Stable: Yes Pain Control Satisfactory: Yes Nausea and Vomiting Control Satisfactory: Yes Mental Status Recovered: Yes
[2017-01-30] MEDS ORDERED: traMADol 50 MG Tab PO SCH (09:00)
[2017-01-30] MEDS: Amoxicillin 500 MG Cap PO SCH (10:06)
[2017-01-30] MEDS: Rosuvastatin 10 MG Tab PO SCH (10:09)
[2017-01-30] MEDS: Carvedilol 6.25 MG Tab PO SCH (10:10)
[2017-01-30] MEDS: Aspirin 81 MG Tab.EC PO SCH (10:10)
[2017-01-30] MEDS: Potassium Chloride 10% 20 MEQ/15 ML Soln 15 ML UD Cup PO SCH (10:10)
[2017-01-30 10:11] VITALS: BP 134/84
--- NOTE | 2017-01-30 12:38 | PCM.DCSUM1 ---
<Juana Pettit M - Last Filed: 01/30/17 18:40> Discharge Summary - Hospital Course Free Text/Narrative:: Unable to make GI appt directly, it must be arranged by her PCP; she has been started on regimen for H Pylori as well as low dose steroids for possible inflammatory bowel. - Discharge Data Discharge Disposition: Home, Self-Care 01 Condition: Good - Discharge Plan Prescriptions/Med Rec: Amoxicillin [Amoxil] 1,000 mg PO Q12HR #20 cap Aspirin [Halfprin] 81 mg PO DAILY #30 tab.ec Clarithromycin [Biaxin] 500 mg PO BID #20 tablet Pantoprazole [ProTONIX] 40 mg PO BIDAC #20 tab.cr Prednisone [IJD: predniSONE] 20 mg PO WITHBREAKFAST #5 tab Home Medications: Home Meds Acetaminophen [Tylenol Extra Strength] 1,000 mg PO DAILY 01/28/17 [History] Carvedilol [Coreg] 6.25 mg PO BID 01/28/17 [History] Clopidogrel [Plavix] 75 mg PO DAILY 01/28/17 [History] Folic Acid 1 mg PO DAILY 01/28/17 [History] Losartan/Hydrochlorothiazide [Hyzaar 50-12.5 Tablet] 1 each PO DAILY 01/28/17 [ History] Rosuvastatin [Crestor] 20 mg PO DAILY 01/28/17 [History] Solifenacin [Vesicare] 5 mg PO DAILY 01/28/17 [History] amLODIPine [Norvasc] 5 mg PO DAILY 01/28/17 [History] traMADol [Ultram] 100 mg PO DAILY 01/28/17 [History] Amoxicillin [Amoxil] 1,000 mg PO Q12HR #20 cap 01/30/17 [Rx] Aspirin [Halfprin] 81 mg PO DAILY #30 tab.ec 01/30/17 [Rx] Clarithromycin [Biaxin] 500 mg PO BID #20 tablet 01/30/17 [Rx] Pantoprazole [ProTONIX] 40 mg PO BIDAC #20 tab.cr 01/30/17 [Rx] Prednisone [IJD: predniSONE] 20 mg PO WITHBREAKFAST #5 tab 01/30/17 [Rx] Patient Handouts: Hypertension, Eruh-cr-Dreb, Gastrointestinal Bleeding, Easy- to-Read Forms: ED Department Discharge Referrals: Asad Parada MD [Physician] - Ranjan Lau MD [Primary Care Provider] - (Please see Dr. Paulino at [facility] on Saturday at 8:30 AM 02/04/2017.) - Patient Data Vitals - Most Recent: Last Vital Signs Temp 36.8 C 01/30/17 08:22 Pulse 87 01/30/17 10:10 Resp 20 01/30/17 08:22 BP 134/84 01/30/17 10:10 Pulse Ox 97 01/30/17 08:22 I&O - Last 24 hours: Intake & Output 01/30/17 01/30/17 01/30/17 06:59 14:59 22:59 Intake Total 450 120 Balance 450 120 Lab Results - Last 24 hrs: Laboratory Results - last 24 hr 01/30/17 01/30/17 Range/Units 09:30 09:30 WBC 8.55 (3.98-10.04) K/mm3 RBC 4.49 (3.98-5.22) M/mm3 Hgb 13.6 (11.2-15.7) gm/L Hct 40.8 (34.1-44.9) % MCV 90.9 (79.4-94.8) fl MCH 30.3 (25.6-32.2) pg MCHC 33.3 (32.2-35.5) g/dl RDW Std Deviation 42.6 (36.4-46.3) fL Plt Count 185 (182-369) K/mm3 MPV 10.8 (9.4-12.3) fl Sodium 141 (136-145) mEq/L Potassium 3.5 (3.5-5.1) mEq/L Chloride 106 (98-107) mEq/L Carbon Dioxide 24 (21-32) mEq/L Anion Gap 14.5 (5-15) BUN 5 L (7-18) mg/dL Creatinine 0.5 L (0.55-1.02) mg/dL Est Cr Clr Drug Dosing 67.68 mL/min Estimated GFR (MDRD) > 60 (>60) mL/min BUN/Creatinine Ratio 10.0 L (14-18) Glucose 130 H (83-115) mg/dL Calcium 8.4 L (8.5-10.1) mg/dL GERRI Results - Last 24 hrs: Microbiology 01/29/17 12:25 - Final Stool / Feces - Stool, Liquid NEGATIVE FOR SHIGA TOXIN 1 - Final NEGATIVE FOR SHIGA TOXIN 2 01/29/17 12:25 Cryptosporidium/Giardia - Final Stool / Feces - Stool, Liquid 01/28/17 12:25 Stool for WBCs - Final Stool / Feces Med Orders - Current: Current Medications Discontinued Medications Amoxicillin (Amoxil) 1,000 mg PO Q12HR [facility] Last Admin: 01/30/17 10:06 Dose: 1,000 mg Aspirin (Halfprin) 81 mg PO DAILY [facility] Last Admin: 01/30/17 10:10 Dose: 81 mg Carvedilol (Coreg) 6.25 mg PO BID [facility] Last Admin: 01/30/17 10:10 Dose: 6.25 mg Clarithromycin (Biaxin) 500 mg PO BID [facility] Last Admin: 01/30/17 10:06 Dose: 500 mg Clopidogrel Bisulfate (Plavix) 75 mg PO DAILY [facility] Last Admin: 01/28/17 15:51 Dose: 75 mg Diphtheria/Tetanus/Acell Pertussis (Boostrix) 0.5 ml IM .ONCE ONE Stop: 01/28/17 10:50 Last Admin: 01/28/17 14:47 Dose: Not Given Fentanyl (Sublimaze) Confirm Administered Dose 100 mcg .ROUTE .STK-MED ONE Stop: 01/29/17 10:48 Hydromorphone HCl (Dilaudid) 0.5 mg IVPUSH ONETIME ONE Stop: 01/28/17 10:06 Last Admin: 01/28/17 10:18 Dose: 0.5 mg Sodium Chloride (Normal Saline) 1,000 mls @ 150 mls/hr IV ASDIRECTED [facility] Last Admin: 01/29/17 00:48 Dose: 150 mls/hr Lidocaine HCl (Xylocaine-Mpf 1%) Confirm Administered Dose 6 mls @ as directed .ROUTE .STK-MED ONE Stop: 01/29/17 10:47 Lactated Ringer's (Ringers, Lactated) Confirm Administered Dose 1,000 mls @ as directed .ROUTE .STK-MED ONE Stop: 01/29/17 12:10 Ondansetron HCl (Zofran) 4 mg IVPUSH Q8H PRN PRN Reason: Nausea/Vomiting Pantoprazole Sodium (Protonix Iv) 40 mg IVPUSH Q12H [facility] Last Admin: 01/29/17 15:15 Dose: 40 mg Pantoprazole Sodium (Protonix) 40 mg PO BIDAC [facility] Last Admin: 01/30/17 06:00 Dose: 40 mg Polyethylene Glycol/Electrolytes (Golytely) 4,000 ml PO ONETIME ONE Stop: 01/28/17 19:10 Last Admin: 01/28/17 19:52 Dose: 4,000 ml Potassium Chloride (Potassium Chloride Solution) 60 meq PO BID [facility] Last Admin: 01/30/17 10:10 Dose: 60 meq Propofol (Diprivan 20 Ml) Confirm Administered Dose 200 mg .ROUTE .STK-MED ONE Stop: 01/29/17 10:48 Rosuvastatin Calcium (Crestor) 20 mg PO DAILY [facility] Last Admin: 01/30/17 10:09 Dose: 20 mg Temazepam (Restoril) 7.5 mg PO BEDTIME PRN PRN Reason: insomnia Last Admin: 01/29/17 20:15 Dose: 7.5 mg Tramadol HCl (Ultram) 100 mg PO DAILY [facility] Last Admin: 01/30/17 10:07 Dose: 100 mg Trospium (Sanctura) 20 mg PO BIDAC [facility] Last Admin: 01/30/17 06:00 Dose: 20 mg *Q Meaningful Use (DIS) - VTE *Q VTE Criteria *Q: - Stroke *Q Stroke Criteria *Q: - AMI *Q AMI Criteria *Q: <Libia Lora - Last Filed: 01/31/17 13:24> Discharge Summary - Hospital Course Free Text/Narrative:: 76 year old female with chronic diarrhea, has had loose stool with mucous. This changed last night to stool with mucous and blood. The patient was unaware that it was not normal. She did not experience fever or chills however did have transient abdominal pain evening. She has experienced nausea without vomiting. Currently her Hgb is stable, stool has been sent for culture and a general surgery consult for a colonoscopy has been ordered. Preliminary reports from Dr. Parada re: colonoscopy are with ulcerations to left colon with biopsies taken; differential to include crohn's disease, ulcerative colitis vs infectious. She is H. Pylori positive. Will be treated as such with antibiotics and PPI upon discharge along with course of prednisone for suspected IBD. She will be set up with GI for consult. She is to follow up with her PCP within 5-7 days of discharge. - Discharge Data Discharge Date: 01/30/17 (admit date 01/28/17) - Discharge Diagnosis/Problem(s) (1) Diarrhea SNOMED Code(s): 31075155 ICD Code: R19.7 - DIARRHEA, UNSPECIFIED Status: Acute Priority: High Qualifiers: Diarrhea type: unspecified type Qualified Code(s): R19.7 - Diarrhea, unspecified (2) Hematochezia SNOMED Code(s): 935599214 ICD Code: K92.1 - MELENA Status: Acute Priority: High (3) GI bleeding SNOMED Code(s): 37825416 ICD Code: K92.2 - GASTROINTESTINAL HEMORRHAGE, UNSPECIFIED Status: Acute Priority: High Qualifiers: GI bleed type/associated pathology: unspecified gastrointestinal hemorrhage type Qualified Code(s): K92.2 - Gastrointestinal hemorrhage, unspecified - Patient Summary/Data Operative Procedure(s) Performed: colonosocopy with bx Complications: None Consults: General Surgery, Dr. Asad Parada PT/OT Labs Pending at D/C: Biopsies from Colonoscopy Recommended Follow-up Testing/Procedures: Patient is to follow up with GI specialist, please call Daughter Molly regarding appt. time, [facility] in [place] will have to call patient and daughter with appt. time. This is essential for further treatment of ongoing gastrointestinal condition, biopsies are pending at this time so formal diagnosis is pending. Follow up with PCP, Dr. Paulino, within 5-7 days of discharge for recheck. Planned Operative Procedure(s) after DC: None Hospital Course: As above - Patient Instructions Diet: GI Soft/Low Residue/Low Fiber Activity: As Tolerated Driving: Do Not Drive Showering/Bathing: May Shower Notify Provider of: Fever, Increased Pain, Nausea and/or Vomiting (bloody stool , return of diarrhea/worsening, abdominal pain) - Discharge Summary/Plan Comment DC Time >30 min.: Yes (40 min) - General Info Date of Service: 01/30/17 Admission Dx/Problem (Free Text: Admission Diagnosis/Problem Admission Diagnosis/Problem Hemorrhagic diarrhea Functional Status: Reports: pain controlled, tolerating diet, ambulating, urinating. Denies: new symptoms - Review of Systems General: Reports: No Symptoms HEENT: Reports: no symptoms Pulmonary: Reports: no symptoms Cardiovascular: Reports: No Symptoms Gastrointestinal: Reports: Other (s/p colonoscopy with bx). Denies: Abdominal pain, Diarrhea, Hematochezia (resolved), Melena, Nausea, Vomiting Genitourinary: Reports: no symptoms Musculoskeletal: Reports: no symptoms Skin: Reports: no symptoms Neurological: Reports: No Symptoms Psychiatric: Reports: no symptoms - Patient Data Vitals - Most Recent: Last Vital Signs Temp 98.2 F 01/30/17 08:22 Pulse 87 01/30/17 10:10 Resp 20 01/30/17 08:22 BP 134/84 01/30/17 10:10 Pulse Ox 97 01/30/17 08:22 Weight - Most Recent: 165 lb 12.8 oz I&O - Last 24 hours: Intake & Output 01/29/17 01/30/17 01/30/17 22:59 06:59 14:59 Intake Total 1687 450 120 Output Total 1505 Balance 182 450 120 Lab Results - Last 24 hrs: Laboratory Results - last 24 hr 01/29/17 01/30/17 01/30/17 Range/Units 12:25 09:30 09:30 WBC 8.55 (3.98-10.04) K/mm3 RBC 4.49 (3.98-5.22) M/mm3 Hgb 13.6 (11.2-15.7) gm/L Hct 40.8 (34.1-44.9) % MCV 90.9 (79.4-94.8) fl MCH 30.3 (25.6-32.2) pg MCHC 33.3 (32.2-35.5) g/dl RDW Std Deviation 42.6 (36.4-46.3) fL Plt Count 185 (182-369) K/mm3 MPV 10.8 (9.4-12.3) fl Sodium 141 (136-145) mEq/L Potassium 3.5 (3.5-5.1) mEq/L Chloride 106 (98-107) mEq/L Carbon Dioxide 24 (21-32) mEq/L Anion Gap 14.5 (5-15) BUN 5 L (7-18) mg/dL Creatinine 0.5 L (0.55-1.02) mg/dL Est Cr Clr Drug Dosing 67.68 mL/min Estimated GFR (MDRD) > 60 (>60) mL/min BUN/Creatinine Ratio 10.0 L (14-18) Glucose 130 H (83-115) mg/dL Calcium 8.4 L (8.5-10.1) mg/dL C.difficile [id number] Presumptive negative C. difficile Tox (PCR) Negative GERRI Results - Last 24 hrs: Microbiology 01/29/17 12:25 - Final Stool / Feces - Stool, Liquid NEGATIVE FOR SHIGA TOXIN 1 - Final NEGATIVE FOR SHIGA TOXIN 2 01/29/17 12:25 Cryptosporidium/Giardia - Final Stool / Feces - Stool, Liquid 01/28/17 12:25 Stool for WBCs - Final Stool / Feces Med Orders - Current: Current Medications Amoxicillin (Amoxil) 1,000 mg PO Q12HR [facility] Last Admin: 01/30/17 10:06 Dose: 1,000 mg Aspirin (Halfprin) 81 mg PO DAILY [facility] Last Admin: 01/30/17 10:10 Dose: 81 mg Carvedilol (Coreg) 6.25 mg PO BID [facility] Last Admin: 01/30/17 10:10 Dose: 6.25 mg Clarithromycin (Biaxin) 500 mg PO BID [facility] Last Admin: 01/30/17 10:06 Dose: 500 mg Ondansetron HCl (Zofran) 4 mg IVPUSH Q8H PRN PRN Reason: Nausea/Vomiting Pantoprazole Sodium (Protonix) 40 mg PO BIDAC [facility] Last Admin: 01/30/17 06:00 Dose: 40 mg Potassium Chloride (Potassium Chloride Solution) 60 meq PO BID [facility] Last Admin: 01/30/17 10:10 Dose: 60 meq Rosuvastatin Calcium (Crestor) 20 mg PO DAILY [facility] Last Admin: 01/30/17 10:09 Dose: 20 mg Temazepam (Restoril) 7.5 mg PO BEDTIME PRN PRN Reason: insomnia Last Admin: 01/29/17 20:15 Dose: 7.5 mg Tramadol HCl (Ultram) 100 mg PO DAILY [facility] Last Admin: 01/30/17 10:07 Dose: 100 mg Trospium (Sanctura) 20 mg PO BIDAC [facility] Last Admin: 01/30/17 06:00 Dose: 20 mg Discontinued Medications Clopidogrel Bisulfate (Plavix) 75 mg PO DAILY [facility] Last Admin: 01/28/17 15:51 Dose: 75 mg Diphtheria/Tetanus/Acell Pertussis (Boostrix) 0.5 ml IM .ONCE ONE Stop: 01/28/17 10:50 Last Admin: 01/28/17 14:47 Dose: Not Given Fentanyl (Sublimaze) Confirm Administered Dose 100 mcg .ROUTE .STK-MED ONE Stop: 01/29/17 10:48 Hydromorphone HCl (Dilaudid) 0.5 mg IVPUSH ONETIME ONE Stop: 01/28/17 10:06 Last Admin: 01/28/17 10:18 Dose: 0.5 mg Sodium Chloride (Normal Saline) 1,000 mls @ 150 mls/hr IV ASDIRECTED [facility] Last Admin: 01/29/17 00:48 Dose: 150 mls/hr Lidocaine HCl (Xylocaine-Mpf 1%) Confirm Administered Dose 6 mls @ as directed .ROUTE .STK-MED ONE Stop: 01/29/17 10:47 Lactated Ringer's (Ringers, Lactated) Confirm Administered Dose 1,000 mls @ as directed .ROUTE .STK-MED ONE Stop: 01/29/17 12:10 Pantoprazole Sodium (Protonix Iv) 40 mg IVPUSH Q12H [facility] Last Admin: 01/29/17 15:15 Dose: 40 mg Polyethylene Glycol/Electrolytes (Golytely) 4,000 ml PO ONETIME ONE Stop: 01/28/17 19:10 Last Admin: 01/28/17 19:52 Dose: 4,000 ml Propofol (Diprivan 20 Ml) Confirm Administered Dose 200 mg .ROUTE .STK-MED ONE Stop: 01/29/17 10:48 - Exam Quality Assessment: Reports: DVT prophylaxis General: Reports: alert, oriented, cooperative, no acute distress HEENT: Reports: Pupils equal, Pupils reactive, Mucous membr. moist/pink Neck: Reports: supple Lungs: Reports: Clear to auscultation, Normal respiratory effort, Decreased breath sounds (to bases) Cardiovascular: Reports: Regular Rate, Regular Rhythm Abdomen: Reports: bowel sounds present, soft, no tenderness, no distension (Female) Exam: Deferred Rectal (Female) Exam: Deferred Extremities: Reports: no calf tenderness Skin: Reports: warm, dry Neurological: Reports: no new focal deficit Psy/Mental Status: Reports: alert, normal affect, normal mood *Q Meaningful Use (DIS) - VTE *Q VTE Criteria *Q: - Stroke *Q Stroke Criteria *Q: - AMI *Q AMI Criteria *Q:
== END 2017-01-30 14:40 | disposition home or self-care (01) ==
LOC: JD.ED 08:17 → JD.MS 10:06
PROVIDERS: ADMIT Internal Medicine Cardiovascular Disease; ATTEND Internal Medicine Cardiovascular Disease
PROC: 0DBM8ZX Excision of Descending Colon, Via Natural or Artificial Opening Endoscopic, Diagnostic (ICD-10-PCS; principal; 2017-01-28)
PROC: 0DBE8ZX Excision of Large Intestine, Via Natural or Artificial Opening Endoscopic, Diagnostic (ICD-10-PCS; 2017-01-28)
PROC: 0DBP8ZX Excision of Rectum, Via Natural or Artificial Opening Endoscopic, Diagnostic (ICD-10-PCS; 2017-01-28)
DX: K63.3 Ulcer of intestine (principal); K57.30 Diverticulosis of large intestine without perforation or abscess without bleeding; K92.1 Melena; K52.9 Noninfective gastroenteritis and colitis, unspecified; A04.8 Other specified bacterial intestinal infections; K64.4 Residual hemorrhoidal skin tags; K64.8 Other hemorrhoids; I25.10 Atherosclerotic heart disease of native coronary artery without angina pectoris; I10 Essential (primary) hypertension; I25.2 Old myocardial infarction; Z95.5 Presence of coronary angioplasty implant and graft; K59.09 Other constipation; R35.0 Frequency of micturition; R39.15 Urgency of urination; M19.90 Unspecified osteoarthritis, unspecified site; F32.9 Major depressive disorder, single episode, unspecified; F41.9 Anxiety disorder, unspecified; Z86.73 Personal history of transient ischemic attack (TIA), and cerebral infarction without residual deficits; E78.5 Hyperlipidemia, unspecified; Z79.899 Other long term (current) drug therapy
CPT/HCPCS: 36415; 45380; 80048; 80053; 85018; 85025; 85027; 85610; 85730; 86850; 86900; 86901; 87046; 87328; 87329; 87338; 87425; 87493; 88305; 89055; 93005; 96361; 96374; 96375; 96376; 99285; A9270; C9113; G0378; J1170; J3010; J7040; J7120; 87427; J2704

== ENCOUNTER 2018-03-05 21:27 | Emergency (ER) | payer MEDICARE, BC ==
[2018-03-05 21:33] VITALS: BP 158/102
--- NOTE | 2018-03-05 21:58 | EDM.PDOC ---
ED HPI GENERAL MEDICAL PROBLEM - General Chief Complaint: Respiratory Problem Stated Complaint: [facility] Time Seen by Provider: 03/05/18 21:57 - History of Present Illness INITIAL COMMENTS - FREE TEXT/NARRATIVE: 77-year-old female presents emergency room with chest pain shortness of breath. This pain started about 2 days ago. The patient tried a sublingual nitroglycerin before the ambulance picked her up and her pain and shortness of breath resolved and have stayed gone to this point. 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 She is treated for congestive heart failure. She is treated for hypertension hyperlipidemia. - Related Data Allergies Allergy/AdvReac Type Severity Reaction Status Date / Time No Known Allergies Allergy Verified 03/05/18 21:30 Home Meds: Home Meds Carvedilol [Coreg] 6.25 mg PO BID 01/28/17 [History] Clopidogrel [Plavix] 75 mg PO DAILY 01/28/17 [History] Folic Acid 1 mg PO BEDTIME 01/28/17 [History] Losartan/Hydrochlorothiazide [Hyzaar 50-12.5 Tablet] 1 each PO BEDTIME 01/28/17 [History] Rosuvastatin [Crestor] 20 mg PO BEDTIME 01/28/17 [History] Solifenacin [Vesicare] 5 mg PO ACBREAKFAST 01/28/17 [History] amLODIPine [Norvasc] 2.5 mg PO BEDTIME 01/28/17 [History] Acetaminophen [Tylenol Arthritis Pain] 650 mg PO BID 03/05/18 [History] B-Complex with Vitamin C [Super B Complex-Vitamin C] 1 tab PO ACBREAKFAST [History] Canagliflozin/Metformin HCl [Invokamet 150-500 mg Tablet] 0.5 tab PO ACBREAKFAST 03/05/18 [History] Naproxen Sodium [Aleve] 220 mg PO ACBREAKFAST 03/05/18 [History] Pantoprazole [ProTONIX] 40 mg PO ACBREAKFAST 03/05/18 [History] Sertraline [Zoloft] 25 mg PO BEDTIME 03/05/18 [History] Furosemide [Lasix] 20 mg PO DAILY #3 tab 03/06/18 [Rx] Potassium Chloride [Klor-Con M20] 20 meq PO Q8H #9 tab.er 03/06/18 [Rx] Past Medical History HEENT History: Reports: Cataract, Impaired Vision Other HEENT History: Wears glasses Cardiovascular History: Reports: Heart Failure, High Cholesterol, Hypertension, SD, Stents Gastrointestinal History: Reports: Chronic Constipation, Chronic Diarrhea Genitourinary History: Reports: Renal Calculus, Urinary Incontinence Other Genitourinary History: frequency and urgency; wears depends at night 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 hard of hearing. wears glasses GI Surgical History: Reports: Appendectomy, Cholecystectomy Female Surgical History: Reports: Hysterectomy Musculoskeletal Surgical History: Reports: Arthroscopic Knee, Shoulder Surgery Social & Family History - Family History Cardiac: Reports: SD GI: Reports: Cirrhosis - Tobacco Use Smoking Status *Q: Never Smoker - Caffeine Use Caffeine Use: Reports: None - Recreational Drug Use Recreational Drug Use: No ED ROS GENERAL - Review of Systems Review Of Systems: See Below Constitutional: Reports: No Symptoms HEENT: Reports: No Symptoms Respiratory: Reports: Shortness of Breath. Denies: Cough (This is now resolved) , Sputum Cardiovascular: Reports: Chest Pain (This is resolved) Endocrine: Reports: No Symptoms GI/Abdominal: Reports: No Symptoms : Reports: No Symptoms Neurological: Reports: No Symptoms ED EXAM, GENERAL - Physical Exam Exam: See Below Exam Limited By: No Limitations General Appearance: Alert, No Apparent Distress Head: Atraumatic, Normocephalic Neck: Normal Inspection, Supple, Non-Tender, Full Range of Motion Respiratory/Chest: No Respiratory Distress, Normal Breath Sounds, No Accessory Muscle Use, Chest Non-Tender, Crackles (She has auditory crackles noted in both bases). No: Lungs Clear Cardiovascular: Regular Rate, Rhythm, No Murmur, Other (1-2+ lower extremity edema according to the patient this is no worse than normal) GI/Abdominal: Normal Bowel Sounds, Soft, Non-Tender, No Organomegaly, No Distention, No Abnormal Bruit, No Mass Extremities: Normal Inspection, Other (1-2+ pitting edema in the lower extremities) Neurological: Alert, Oriented, Normal Cognition Skin Exam: Warm, Intact Lymphatic: No Adenopathy Course - Vital Signs Last Recorded V/S: Last Vital Signs Temp 36.6 C 03/05/18 21:30 Pulse 74 03/05/18 21:30 Resp 12 03/05/18 21:30 BP 158/102 H 03/05/18 21:30 Pulse Ox 92 L 03/05/18 21:30 - Orders/Labs/Meds Orders: Active Orders 24 hr Category Date Time Status EKG Documentation Completion [RC] STAT Care 03/05/18 22:07 Active Chest 1V Frontal [CR] Stat Exams 03/05/18 22:07 Taken Labs: Laboratory Tests 03/05/18 03/05/18 03/05/18 Range/Units 22:22 22:22 22:22 WBC 8.39 (3.98-10.04) K/mm3 RBC 4.27 (3.98-5.22) M/mm3 Hgb 13.2 (11.2-15.7) gm/L Hct 40.3 (34.1-44.9) % MCV 94.4 (79.4-94.8) fl MCH 30.9 (25.6-32.2) pg MCHC 32.8 (32.2-35.5) g/dl RDW Std Deviation 44.0 (36.4-46.3) fL Plt Count 160 L (182-369) K/mm3 MPV 11.1 (9.4-12.3) fl Neutrophils % (Manual) 64 H (40-60) % Band Neutrophils % 0 (0-10) % Lymphocytes % (Manual) 26 (20-40) % Atypical Lymphs % 6 % Monocytes % (Manual) 4 (2-10) % Eosinophils % (Manual) 0 L (0.7-5.8) % Basophils % (Manual) 0 L (0.1-1.2) Platelet Estimate Adequate Plt Morphology Comment Normal Poikilocytosis 1+ slight Anisocytosis 1+ slight Microcytosis 1+ slight Macrocytosis 1+ slight Tear Drop Cells 1+ slight Ovalocytes 1+ slight RBC Morph Comment Abnormal PT 11.0 (9.5-12.1) SECONDS INR 1.01 APTT 28 (24-31) SECONDS Sodium 143 (136-145) mEq/L Potassium 3.2 L (3.5-5.1) mEq/L Chloride 107 (98-107) mEq/L Carbon Dioxide 27 (21-32) mEq/L Anion Gap 12.2 (5-15) BUN 16 (7-18) mg/dL Creatinine 0.8 (0.55-1.02) mg/dL Est Cr Clr Drug Dosing 41.63 mL/min Estimated GFR (MDRD) > 60 (>60) mL/min BUN/Creatinine Ratio 20.0 H (14-18) Glucose 117 H (83-115) mg/dL Calcium 8.9 (8.5-10.1) mg/dL Total Bilirubin 1.4 H (0.2-1.0) mg/dL AST 20 (15-37) U/L ALT 28 (14-59) U/L Alkaline Phosphatase 78 (46-116) U/L Troponin I < 0.017 (0.00-0.056) ng/mL NT-Pro-B Natriuret Pep (0-450) pg/mL Total Protein 6.7 (6.4-8.2) g/dl Albumin 3.5 (3.4-5.0) g/dl Globulin 3.2 gm/dL Albumin/Globulin Ratio 1.1 (1-2) 03/05/18 03/06/18 Range/Units 22:22 01:20 WBC (3.98-10.04) K/mm3 RBC (3.98-5.22) M/mm3 Hgb (11.2-15.7) gm/L Hct (34.1-44.9) % MCV (79.4-94.8) fl MCH (25.6-32.2) pg MCHC (32.2-35.5) g/dl RDW Std Deviation (36.4-46.3) fL Plt Count (182-369) K/mm3 MPV (9.4-12.3) fl Neutrophils % (Manual) (40-60) % Band Neutrophils % (0-10) % Lymphocytes % (Manual) (20-40) % Atypical Lymphs % % Monocytes % (Manual) (2-10) % Eosinophils % (Manual) (0.7-5.8) % Basophils % (Manual) (0.1-1.2) Platelet Estimate Plt Morphology Comment Poikilocytosis Anisocytosis Microcytosis Macrocytosis Tear Drop Cells Ovalocytes RBC Morph Comment PT (9.5-12.1) SECONDS INR APTT (24-31) SECONDS Sodium (136-145) mEq/L Potassium (3.5-5.1) mEq/L Chloride (98-107) mEq/L Carbon Dioxide (21-32) mEq/L Anion Gap (5-15) BUN (7-18) mg/dL Creatinine (0.55-1.02) mg/dL Est Cr Clr Drug Dosing mL/min Estimated GFR (MDRD) (>60) mL/min BUN/Creatinine Ratio (14-18) Glucose (83-115) mg/dL Calcium (8.5-10.1) mg/dL Total Bilirubin (0.2-1.0) mg/dL AST (15-37) U/L ALT (14-59) U/L Alkaline Phosphatase (46-116) U/L Troponin I 0.019 (0.00-0.056) ng/mL NT-Pro-B Natriuret Pep 1874 H (0-450) pg/mL Total Protein (6.4-8.2) g/dl Albumin (3.4-5.0) g/dl Globulin gm/dL Albumin/Globulin Ratio (1-2) Meds: Medications Discontinued Medications Generic Name Dose Route Start Last Admin Trade Name Luisq PRN Reason Stop Dose Admin Furosemide 40 mg 03/05/18 22:13 03/05/18 22:25 Lasix IVPUSH 03/05/18 22:14 40 mg NOW ONE Administration Furosemide 40 mg 03/06/18 00:23 Lasix IVPUSH 03/06/18 00:24 NOW ONE Potassium Chloride 40 meq 03/05/18 23:30 03/05/18 23:39 Klor-Con M20 PO 03/05/18 23:31 40 meq ONETIME ONE Administration - Re-Assessments/Exams Free Text/Narrative Re-Assessment/Exam: 03/06/18 02:47 She presented to the emergency room with exertional hypoxia. She was found to be in congestive heart failure by exam she was treated with some Lasix and had a good diuretic response after this she was ambulatory without drop her saturation and did well initial troponin was negative follow-up troponin 3 hours was negative at this hour working on transportation back home. But the patient is deemed safe to go home at this time. Departure - Departure Time of Disposition: 02:52 Disposition: Home, Self-Care 01 Clinical Impression: CHF (congestive heart failure) - Discharge Information Prescriptions: Furosemide [Lasix] 20 mg PO DAILY #3 tab Potassium Chloride [Klor-Con M20] 20 meq PO Q8H #9 tab.er Referrals: Ranjan Lau MD [Primary Care Provider] - Forms: ED Department Discharge Additional Instructions: Return to the emergency room with any questions problems worsening symptoms. Hold VesiCare while taking supplemental potassium. Take the Lasix, furosemide as directed for the next 3 days. Your potassium was found to be a little low see take some extra potassium during this time. Follow-up with Dr. Romeo early next week. - My Orders Last 24 Hours: My Active Orders 03/05/18 22:07 EKG Documentation Completion [RC] STAT Chest 1V Frontal [CR] Stat - Assessment/Plan Last 24 Hours: My Active Orders 03/05/18 22:07 EKG Documentation Completion [RC] STAT Chest 1V Frontal [CR] Stat
[2018-03-05] MEDS ORDERED: Furosemide 40 MG/4 ML VIAL IVPUSH ONE (22:13)
[2018-03-05] MEDS ORDERED: Potassium Chloride 20 MEQ Tab.ER PO ONE (23:30)
[2018-03-06] MEDS ORDERED: Furosemide 40 MG/4 ML VIAL IVPUSH ONE (00:23)
--- NOTE | 2018-03-06 08:10 | CR ---
Chest: Frontal view of the chest was obtained. Comparison: Prior chest x-ray of 06/15/14. Heart is slightly enlarged. Tortuous thoracic aorta is seen. Lung markings are slightly increased which are believed to be accentuated by technique. Lungs otherwise are clear. Bony structures are osteopenic. Mild degenerative change is scattered within the spine. Impression: 1. Mild cardiomegaly. Other incidental findings. 2. Nothing acute is suspected on frontal chest x-ray. Diagnostic code #2
== END 2018-03-06 06:49 | disposition home or self-care (01) ==
LOC: JD.ED 21:27
DX: I11.0 Hypertensive heart disease with heart failure (principal); I50.9 Heart failure, unspecified; E78.00 Pure hypercholesterolemia, unspecified; Z79.899 Other long term (current) drug therapy
CPT/HCPCS: 36415; 71045; 80053; 83880; 84484; 85007; 85027; 85610; 85730; 93005; 96374; 99285; A9270; J1940

== ENCOUNTER 2018-12-22 19:15 | Emergency (ER) | payer MEDICARE, BC ==
[2018-12-22] MEDS ORDERED: Sodium Chloride 0.9% 10 ML Syringe FLUSH PRN (19:53)
[2018-12-22] MEDS ORDERED: Furosemide 40 MG/4 ML VIAL IVPUSH ONE (20:03)
--- NOTE | 2018-12-22 20:03 | EDM.PDOC ---
ED HPI GENERAL MEDICAL PROBLEM - General Chief Complaint: Respiratory Problem Stated Complaint: HIGH BLOOD PRESSURE/CHEST AND BACK PAIN Time Seen by Provider: 12/22/18 19:55 Source of Information: Reports: Patient History Limitations: Reports: No Limitations - History of Present Illness INITIAL COMMENTS - FREE TEXT/NARRATIVE: 78-year-old female presents the ED with her daughter. She's been gradually expressing increased shortness of breath for the last week to perhaps even 2 weeks. She does have an occasional nonproductive cough of clear sputum. No associated fever but she believes she has had some intermittent chills. Denies any hemoptysis. She is gradually developing much more dyspnea on minimal exertion over the last several days. She can't lay completely flat in bed to sleep. She's been sleeping in the easy chair as well as the couch etc. He has a history of congestive heart failure. Has some pleuritic chest pain primarily on the left side that seems to go through to her left back. Onset: Gradual (Over the last 10 days or longer) Onset Date: 12/12/18 Duration: Day(s):, Getting Worse, Waxing/Waning Location: Reports: Chest (Increased dyspnea on minimal exertion with orthopnea and PND) Quality: Reports: Other Severity: Moderate (Soreness of breath) Improves with: Reports: Rest Worsens with: Reports: Other, Movement Context: Denies: Activity (Worse with lying down.), Exercise, Lifting, Sick Contact, Trauma, Other Associated Symptoms: Reports: Chest Pain (Nonproductive cough. Occasional sputum production of clear sputum. Lower chest pain rating to to her back with a pleuritic component), Cough, Fever/Chills, Loss of Appetite, Malaise, Shortness of Breath, Weakness. Denies: No Other Symptoms, Confusion, cough w sputum, Diaphoresis, Headaches (Claim she's had some chills. No defined fever), Nausea/Vomiting, Rash, Seizure, Syncope Treatments TAX MANAGER: Reports: Other (see below) (Associated with shortness of breath) Chest Pain Score (Numeric/FACES): 5 - Related Data Allergies Allergy/AdvReac Type Severity Reaction Status Date / Time No Known Allergies Allergy Verified 12/22/18 19:29 Home Meds: Home Meds Carvedilol [Coreg] 6.25 mg PO BID 01/28/17 [History] Clopidogrel [Plavix] 75 mg PO DAILY 01/28/17 [History] Folic Acid 1 mg PO BEDTIME 01/28/17 [History] Losartan/Hydrochlorothiazide [Hyzaar 50-12.5 Tablet] 1 each PO BEDTIME 01/28/17 [History] Rosuvastatin [Crestor] 20 mg PO BEDTIME 01/28/17 [History] Acetaminophen [Tylenol Arthritis Pain] 650 mg PO BID 03/05/18 [History] B-Complex with Vitamin C [Super B Complex-Vitamin C] 1 tab PO ACBREAKFAST [History] Naproxen Sodium [Aleve] 220 mg PO ACBREAKFAST 03/05/18 [History] Pantoprazole [ProTONIX] 20 mg PO ACBREAKFAST 03/05/18 [History] Sertraline [Zoloft] 25 mg PO BEDTIME 03/05/18 [History] Cholestyramine (With Sugar) [Questran Powder] 4 gm PO DAILY 12/22/18 [History] Furosemide [Lasix] 40 mg PO DAILY #30 tablet 12/22/18 [Rx] Spironolactone [Aldactone] 25 mg PO BID #60 tablet 12/22/18 [Rx] Past Medical History HEENT History: Reports: Cataract, Impaired Vision Other HEENT History: Wears glasses Cardiovascular History: Reports: Heart Failure, High Cholesterol, Hypertension, [place], Stents Gastrointestinal History: Reports: Chronic Constipation, Chronic Diarrhea Genitourinary History: Reports: Renal Calculus, Urinary Incontinence Other Genitourinary History: frequency and urgency; wears depends at night 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 hard of hearing. wears glasses GI Surgical History: Reports: Appendectomy, Cholecystectomy Female Surgical History: Reports: Hysterectomy Musculoskeletal Surgical History: Reports: Arthroscopic Knee, Shoulder Surgery Social & Family History - Family History Cardiac: Reports: [place] GI: Reports: Cirrhosis - Caffeine Use Caffeine Use: Reports: None - Living Situation & Occupation Living situation: Reports: Occupation: Retired Social History Comment: Living at [facility] assisted [facility] ED ROS GENERAL - Review of Systems Review Of Systems: See Below Constitutional: Reports: Chills, Malaise, Weakness, Fatigue, Weight Gain ( Unsure how much.). Denies: Fever HEENT: Reports: Glasses Respiratory: Reports: Shortness of Breath. Denies: Wheezing, Pleuritic Chest Pain Cardiovascular: Reports: No Symptoms, Blood Pressure Problem, Dyspnea on Exertion. Denies: Chest Pain, Claudication, Edema, Lightheadedness, Orthopnea Endocrine: Reports: Fatigue (Severe walking even 10 feet makes her short of breath.) GI/Abdominal: Reports: Decreased Appetite, Other (States bowels are functioning normally.) : Reports: Other (Not feel she's putting out as much urine is normal.) Musculoskeletal: Reports: Joint Pain (E sips low back and shoulders at times. Has had previous right rotator cuff surgery) Skin: Reports: No Symptoms Neurological: Reports: No Symptoms Psychiatric: Reports: No Symptoms Hematologic/Lymphatic: Reports: No Symptoms Immunologic: Reports: No Symptoms ED EXAM, GENERAL - Physical Exam Exam: See Below Exam Limited By: No Limitations General Appearance: Alert, WD/WN, No Apparent Distress, Other (O2 sats are 92-94 % on room air.) Eye Exam: Bilateral Eye: Normal Inspection Ears: Normal TMs Throat/Mouth: Normal Inspection, Normal Lips, Normal Oropharynx, Other Head: Atraumatic, Normocephalic (Has false teeth. Uppers and lowers) Neck: Normal Inspection, Supple, Non-Tender, Full Range of Motion. No: Carotid Bruit, Lymphadenopathy (L), Lymphadenopathy (R) Respiratory/Chest: No Accessory Muscle Use, Chest Non-Tender, Respiratory Distress, Rales (Fine crackles rales in both bases slightly worse on the left as compared to the right). No: Lungs Clear, Normal Breath Sounds Cardiovascular: Regular Rate, Rhythm, No Edema, No Gallop, No Murmur, No Rub. No: Normal Peripheral Pulses Peripheral Pulses: 1+: Posterior Tibial (L), Posterior Tibial (R), Dorsalis Pedis (L), Dorsalis Pedis (R) GI/Abdominal: Normal Bowel Sounds, Soft, Non-Tender, No Organomegaly, No Abnormal Bruit, No Mass, Pelvis Stable Back Exam: Full Range of Motion, Other Extremities: Normal Inspection, Normal Range of Motion, Non-Tender, No Pedal Edema, Other Neurological: Alert, Oriented, CN II-XII Intact, Normal Cognition Psychiatric: Normal Affect (Mild superficial varicosities both lower extremities.), Normal Mood Skin Exam: Warm, Dry, Intact, No Rash (Mild pallor.), Pallor EKG INTERPRETATION EKG Date: 12/22/18 Time: 19:55 Rhythm: NSR Rate (Beats/Min): 64 [place]: LAD-Left [place] Deviation (Left axis deviation of -49.) P-Wave: Present ST-T: Other (Diffuse T-wave inversion V3 to V6. Flattening in leads 23 aVR and aVF.) QT: Prolonged EKG Interpretation Comments: Abnormal ECG Course - Vital Signs Last Recorded V/S: Last Vital Signs Temp 36.4 C 12/22/18 19:29 Pulse 75 12/22/18 21:37 Resp 18 12/22/18 21:37 BP 133/94 H 12/22/18 21:37 Pulse Ox 94 L 12/22/18 21:37 - Orders/Labs/Meds Orders: Active Orders 24 hr Category Date Time Status EKG Documentation Completion [RC] ASDIRECTED Care 12/22/18 19:33 Active Peripheral IV Care [RC] . DIRECTED Care 12/22/18 19:54 Active Chest 1V Frontal [CR] Stat Exams 12/22/18 19:32 Taken Peripheral IV Insertion Adult [OM.PC] Stat Oth 12/22/18 19:53 Ordered EKG 12 Lead [EK] Stat Ther 12/22/18 19:32 Ordered Labs: Laboratory Tests 12/22/18 12/22/18 12/22/18 Range/Units 19:55 19:55 19:55 WBC 6.78 (3.98-10.04) K/mm3 RBC 4.36 (3.98-5.22) M/mm3 Hgb 13.3 (11.2-15.7) gm/L Hct 40.9 (34.1-44.9) % MCV 93.8 (79.4-94.8) fl MCH 30.5 (25.6-32.2) pg MCHC 32.5 (32.2-35.5) g/dl RDW Std Deviation 44.5 (36.4-46.3) fL Plt Count 189 (182-369) K/mm3 MPV 11.1 (9.4-12.3) fl Neutrophils % (Manual) 58 (40-60) % Band Neutrophils % 0 (0-10) % Lymphocytes % (Manual) 33 (20-40) % Atypical Lymphs % 0 % Monocytes % (Manual) 7 (2-10) % Eosinophils % (Manual) 2 (0.7-5.8) % Basophils % (Manual) 0 L (0.1-1.2) Platelet Estimate Adequate RBC Morph Comment Normal Sodium 145 (136-145) mEq/L Potassium 3.8 (3.5-5.1) mEq/L Chloride 108 H (98-107) mEq/L Carbon Dioxide 26 (21-32) mEq/L Anion Gap 14.8 (5-15) BUN 17 (7-18) mg/dL Creatinine 0.9 (0.55-1.02) mg/dL Est Cr Clr Drug Dosing 36.41 mL/min Estimated GFR (MDRD) > 60 (>60) mL/min BUN/Creatinine Ratio 18.9 H (14-18) Glucose 112 (83-115) mg/dL Calcium 8.7 (8.5-10.1) mg/dL Magnesium (1.8-2.4) mg/dl Total Bilirubin 2.3 H (0.2-1.0) mg/dL AST 31 (15-37) U/L ALT 33 (14-59) U/L Alkaline Phosphatase 70 (46-116) U/L CK-MB (CK-2) (0-3.6) ng/ml Troponin I 0.018 (0.00-0.056) ng/mL C-Reactive Protein (<1.0) mg/dL NT-Pro-B Natriuret Pep 5916 H (0-450) pg/mL Total Protein 6.9 (6.4-8.2) g/dl Albumin 3.8 (3.4-5.0) g/dl Globulin 3.1 gm/dL Albumin/Globulin Ratio 1.2 (1-2) Urine Color (Yellow) Urine Appearance (Clear) Urine pH (5.0-8.0) Ur Specific [place] (1.005-1.030) Urine Protein (Negative) Urine Glucose (UA) (Negative) Urine Ketones (Negative) Urine Occult Blood (Negative) Urine Nitrite (Negative) Urine Bilirubin (Negative) Urine Urobilinogen (0.2-1.0) Ur Leukocyte Esterase (Negative) Urine RBC (0-5) /hpf Urine WBC (0-5) /hpf Ur Epithelial Cells (0-5) /hpf Urine Bacteria (FEW) /hpf Hyaline Casts (0-5) /lpf Urine Mucus (FEW) /hpf Mycoplasma pneumon IgM (NEGATIVE) 12/22/18 12/22/18 Range/Units 19:55 20:43 WBC (3.98-10.04) K/mm3 RBC (3.98-5.22) M/mm3 Hgb (11.2-15.7) gm/L Hct (34.1-44.9) % MCV (79.4-94.8) fl MCH (25.6-32.2) pg MCHC (32.2-35.5) g/dl RDW Std Deviation (36.4-46.3) fL Plt Count (182-369) K/mm3 MPV (9.4-12.3) fl Neutrophils % (Manual) (40-60) % Band Neutrophils % (0-10) % Lymphocytes % (Manual) (20-40) % Atypical Lymphs % % Monocytes % (Manual) (2-10) % Eosinophils % (Manual) (0.7-5.8) % Basophils % (Manual) (0.1-1.2) Platelet Estimate RBC Morph Comment Sodium (136-145) mEq/L Potassium (3.5-5.1) mEq/L Chloride (98-107) mEq/L Carbon Dioxide (21-32) mEq/L Anion Gap (5-15) BUN (7-18) mg/dL Creatinine (0.55-1.02) mg/dL Est Cr Clr Drug Dosing mL/min Estimated GFR (MDRD) (>60) mL/min BUN/Creatinine Ratio (14-18) Glucose (83-115) mg/dL Calcium (8.5-10.1) mg/dL Magnesium 1.9 (1.8-2.4) mg/dl Total Bilirubin (0.2-1.0) mg/dL AST (15-37) U/L ALT (14-59) U/L Alkaline Phosphatase (46-116) U/L CK-MB (CK-2) 1.1 (0-3.6) ng/ml Troponin I TNP (0.00-0.056) ng/mL C-Reactive Protein 0.3 (<1.0) mg/dL NT-Pro-B Natriuret Pep (0-450) pg/mL Total Protein (6.4-8.2) g/dl Albumin (3.4-5.0) g/dl Globulin gm/dL Albumin/Globulin Ratio (1-2) Urine Color Yellow (Yellow) Urine Appearance Clear (Clear) Urine pH 6.0 (5.0-8.0) Ur Specific [place] 1.020 (1.005-1.030) Urine Protein 2+ H (Negative) Urine Glucose (UA) Negative (Negative) Urine Ketones Negative (Negative) Urine Occult Blood Negative (Negative) Urine Nitrite Negative (Negative) Urine Bilirubin Negative (Negative) Urine Urobilinogen 0.2 (0.2-1.0) Ur Leukocyte Esterase 1+ H (Negative) Urine RBC 0-5 (0-5) /hpf Urine WBC 5-10 H (0-5) /hpf Ur Epithelial Cells 0-5 (0-5) /hpf Urine Bacteria Not seen (FEW) /hpf Hyaline Casts 0-5 (0-5) /lpf Urine Mucus Not seen (FEW) /hpf Mycoplasma pneumon IgM Negative (NEGATIVE) Meds: Medications Discontinued Medications Generic Name Dose Route Start Last Admin Trade Name Freq PRN Reason Stop Dose Admin Furosemide 40 mg 12/22/18 20:03 12/22/18 20:09 Lasix IVPUSH 12/22/18 20:04 40 mg NOW ONE Administration Sodium Chloride 10 ml 12/22/18 19:53 12/22/18 20:01 Saline Flush FLUSH 10 ml ASDIRECTED PRN Administration Keep Vein Open - Radiology Interpretation Free Text/Narrative:: 78-year-old female presents to the ED with her daughter. She has gradually increasing shortness of breath on minimal exertion over the last week to 10 days. Associated relatively nonproductive cough. So she had orthopnea and PND particularly last 2-3 days and marked increase in shortness of breath on minimal exertion. Patient has been poor. She feels she may have had some chills but no defined fever. She has a history of congestive heart failure and coronary disease. She is currently on Lasix 20 mg once daily every morning. On examination O2 sats are 90-94% on room air. She has fine crackles in both bases compatible with congestive failure. No significant JVD was appreciated. Plan 1 view chest x-ray. Routine labs to include a BNP. Route infective process in the lungs. Will have a saline lock placed and Lasix 40 mg IV given. - Re-Assessments/Exams Free Text/Narrative Re-Assessment/Exam: 12/22/18 21:00: Chest x-ray done portably shows a hazy infiltrate in the right lower lobe of the lung. No pleural effusions. Cardiac silhouette is borderline enlarged. 12/22/18 21:21 White count is normal at 6.78. Differentials 50% it fills with no bands. Hemoglobin is 13.3 hematocrit is 40.9. Bili comes 189,000. Sodium is 145 with a potassium of 3.8. Chloride 108 with a bicarbonate of 26. And a gap is 14.8. BUN is 17 with a creatinine of 0.9. GFR remains greater than 60. BUN/ creatinine ratio is slightly elevated at 18.9. Glucose is 112 with a calcium of 8.7. A museum is 1.9. Total bilirubin is elevated at 2.3. AST is 31 with a nail T of 33. Alk phosphatase is 70. 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 CK-MB fraction is 1.1. Troponin I is 0.018. C-reactive protein is 0.3. A&P is 5916. Protein is 2+ in the urine. 1+ leukocyte esterase with 5-10 wbc's per per field. Mycoplasma pneumonia is negative. Patient feels much better after the Lasix 40 mg IV. She is boarded approximately 900 mils of urine. )2 sats are improved to 97%. I'm therefore going to allow her to go home sustaining in the hospital. I will increase her Lasix to 40 mg every morning as her renal function is normal. I will also add Aldactone 25 mg twice a day to her treatment plan. Lasix 20 mg per day will be discontinued. The potassium supplement which appears to be 20 mg 3 times a day will be discontinued as well. She has a follow-up appointment arranged with Dr. Bueno in 10 days' time. Advised to step on the scale every morning and marked on her weights until she can see him. At follow-up she will need renal function and potassium check up. Departure - Departure Time of Disposition: 21:30 Disposition: Home, Self-Care 01 Condition: Fair Clinical Impression: CHF exacerbation Qualifiers: Heart failure type: unspecified Qualified Code(s): I50.9 - Heart failure, unspecified - Discharge Information *PRESCRIPTION DRUG MONITORING PROGRAM REVIEWED*: Not Applicable *COPY OF PRESCRIPTION DRUG MONITORING REPORT IN PATIENT MORELIA: Not Applicable Prescriptions: Furosemide [Lasix] 40 mg PO DAILY #30 tablet Spironolactone [Aldactone] 25 mg PO BID #60 tablet Instructions: Heart Failure, [id number] Referrals: Gibran Obregon MD [Primary Care Provider] - Forms: ED Department Discharge Additional Instructions: Evaluation in the emergency room today in regards to increasing shortness of breath with minimally productive cough over the last 10 days or more. Associated with trouble laying down flat to sleep. Urine is mostly clear in color without any obvious fever. Workup in the emergency room revealed hazy infiltrate in the right lower lobar your lung which produced be fluid collection. Lab tests confirm suspicion of exacerbation of heart failure. No signs of recent heart attack in your kidneys are still working well. For the reason for heart decompensation is unclear. Treatment in the ED was Lasix 40 mg IV. Change of treatment at home will be Lasix 40 mg every morning instead of 20 mg. Also we will add Aldactone 25 mg to your treatment morning and suppertime which works to help relieve fluid collection as well. It also helps maintain your serum potassiums that you don't have to take potassium supplements. Therefore current Lasix 20 mg per day has been discontinued and your potassium supplements which I believe ordered 3 times daily were discontinued. Follow-up with Dr. Bueno in the clinic as planned. As we discussed to step on the scale every morning and marked on your weight you see Dr. Delcid. He will need blood tests done when you see Dr. Bueno to check on your kidney function and potassium level. - My Orders Last 24 Hours: My Active Orders 12/22/18 19:53 Peripheral IV Insertion Adult [OM.PC] Stat 12/22/18 19:54 Peripheral IV Care [RC] . DIRECTED - Assessment/Plan Last 24 Hours: My Active Orders 12/22/18 19:53 Peripheral IV Insertion Adult [OM.PC] Stat 12/22/18 19:54 Peripheral IV Care [RC] . DIRECTED
[2018-12-22 21:37] VITALS: BP 133/94
--- NOTE | 2018-12-23 08:40 | CR ---
Chest: Portable view of the chest was obtained. Comparison: Prior chest x-ray of 03/05/18. Heart is enlarged which is stable from prior chest x-ray. Lungs are clear. Chronic rotator cuff tear is seen within the right shoulder with evidence of previous surgery. Mild scoliosis is present within the spine. Impression: 1. Cardiomegaly. Other findings as noted above. Nothing acute is seen on portable chest x-ray. Diagnostic code #2
== END 2018-12-22 21:45 | disposition home or self-care (01) ==
LOC: JD.ED 19:15
DX: I11.0 Hypertensive heart disease with heart failure (principal); I50.9 Heart failure, unspecified; I25.2 Old myocardial infarction; Z86.73 Personal history of transient ischemic attack (TIA), and cerebral infarction without residual deficits; F41.9 Anxiety disorder, unspecified; F32.9 Major depressive disorder, single episode, unspecified; Z90.49 Acquired absence of other specified parts of digestive tract; Z98.49 Cataract extraction status, unspecified eye; Z90.710 Acquired absence of both cervix and uterus; Z79.899 Other long term (current) drug therapy
CPT/HCPCS: 36415; 71045; 80053; 81001; 82553; 83735; 83880; 84484; 85007; 85027; 86140; 86738; 93005; 96374; 99285; J1940; 93010

== ENCOUNTER 2019-03-22 09:25 | Emergency (ER) | payer MEDICARE, BC ==
[2019-03-22 09:48] VITALS: BP 113/69
[2019-03-22] MEDS ORDERED: Sodium Chloride 0.9% 1,000 ML IV SCH ×2 (10:00→11:30)
--- NOTE | 2019-03-22 10:05 | EDM.PDOC ---
ED HPI GENERAL MEDICAL PROBLEM - General Chief Complaint: General Stated Complaint: FELL Time Seen by Provider: 03/22/19 09:55 Source of Information: Reports: Patient History Limitations: Reports: No Limitations - History of Present Illness INITIAL COMMENTS - FREE TEXT/NARRATIVE: 78-year-old female presents to the ED 2 days after falling in her bathroom. She states her shoe got stuck on a edwina causing tripped up and she fell landing hard on the edge of the bathtub with her left ribs and anterior chest wall. The wind out of her. She states is clearly she developed increased left-sided chest pain. The inferior lateral quadrant of her left breast is become dark purple in color. Pain is underneath the breast and posterior laterally. The patient is on Plavix 75 mg daily for greater than 10 years. She believes she has [address] in total. She denies hitting her head. There's been no nausea vomiting change in visual acuity. States he always has a painful neck and is no worse than normal. It does hurt mildly to take a deep breath. She denies cough or sputum production or feeling more short of breath than normal. She does have some pain in her left lateral hip as well. Typically with trying to raise her leg when she is weightbearing. No bruising noted on the buttock or hip. Pain is much worse today when compared to yesterday and the day of injury. He states she gets dizzy quite easily and perhaps a little worse and she fell. Denies any syncopal events Onset: Sudden Onset Date: 03/20/19 (Slipped and fell in her bathroom landing hard on the bathtub with her head into the bathtub on SaturdayMarch 20. Knocked the wind out of herself.) Onset Time: 08:00 Duration: Day(s):, Getting Worse Location: Reports: Chest (Left lower chest wall left breast left posterior lateral hip area) Quality: Reports: Ache Severity: Moderate (5 out of 10) Worsens with: Reports: Other (Deep breathing hurts moderately.), Movement Context: Reports: Trauma (Tripped and fell in her bathroom at her home. She lives in [facility] Denies: Activity ( Walking or weightbearing causes pain in the left hip posterior buttock area), Exercise, Lifting, Sick Contact Associated Symptoms: Reports: Chest Pain, Shortness of Breath. 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 Aleve 1 tablet every morning. Of note she is on Plavix.) Left Upper Abdomen Pain Score (Numeric/FACES): 9 - Related Data Allergies Allergy/AdvReac Type Severity Reaction Status Date / Time No Known Allergies Allergy Verified 03/22/19 09:37 Home Meds: Home Meds Carvedilol [Coreg] 6.25 mg PO BID 01/28/17 [History] Clopidogrel [Plavix] 75 mg PO DAILY 01/28/17 [History] Folic Acid 1 mg PO BEDTIME 01/28/17 [History] Losartan/Hydrochlorothiazide [Hyzaar 50-12.5 Tablet] 12.5 - 50 each PO BEDTIME 01/28/17 [History] Rosuvastatin [Crestor] 20 mg PO BEDTIME 01/28/17 [History] Acetaminophen [Tylenol Arthritis Pain] 650 mg PO BID 03/05/18 [History] B-Complex with Vitamin C [Super B Complex-Vitamin C] 1 tab PO ACBREAKFAST [History] Naproxen Sodium [Aleve] 220 mg PO ACBREAKFAST 03/05/18 [History] Pantoprazole [ProTONIX] 20 mg PO ACBREAKFAST 03/05/18 [History] Sertraline [Zoloft] 50 mg PO BEDTIME 03/05/18 [History] Cholestyramine (With Sugar) [Questran Powder] 4 gm PO DAILY 12/22/18 [History] Spironolactone [Aldactone] 25 mg PO BID #60 tablet 12/22/18 [Rx] Acetaminophen/HYDROcodone [[place] 325-5 MG] 1 tab PO Q6H #24 tablet 03/22/19 [Rx] Fluticasone Propionate [Flonase] 2 sprays SOUMYA DAILY 03/22/19 [History] Furosemide [Lasix] 20 mg PO DAILY 03/22/19 [History] Lidocaine 1 patch TOP DAILY 03/22/19 [History] Past Medical History HEENT History: Reports: Cataract, Impaired Vision Other HEENT History: Wears glasses Cardiovascular History: Reports: CAD, Heart Failure, High Cholesterol, Hypertension, [place], Stents (She believes she has 6 stents and all placed at 3 different times.) Other Cardiovascular History: atherosclerotic heart disease Gastrointestinal History: Reports: Chronic Constipation, Chronic Diarrhea Genitourinary History: Reports: Renal Calculus, Urinary Incontinence Other Genitourinary History: frequency and urgency; wears depends at night 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 Is on a lidocaine patch for this pain Neurological History: Reports: TIA Psychiatric History: Reports: Anxiety, Depression - Infectious Disease History Infectious Disease History: Reports: Chicken Pox, Influenza, Measles - Past Surgical History HEENT Surgical History: Reports: Cataract Surgery Other HEENT Surgeries/Procedures: ears plugged w/ wax. hard of hearing. wears glasses GI Surgical History: Reports: Appendectomy, Cholecystectomy Female Surgical History: Reports: Hysterectomy Musculoskeletal Surgical History: Reports: Arthroscopic Knee, Shoulder Surgery Social & Family History - Family History Cardiac: Reports: [place] GI: Reports: Cirrhosis - Tobacco Use Smoking Status *Q: Never Smoker - Caffeine Use Caffeine Use: Reports: None - Recreational Drug Use Recreational Drug Use: No - Living Situation & Occupation Living situation: Reports: Occupation: Retired ED ROS GENERAL - Review of Systems Review Of Systems: See Below Constitutional: Reports: Malaise, Weakness, Fatigue (Chronically. Libra.). Denies: Fever, Chills, Decreased Appetite HEENT: Reports: Glasses, Hearing Loss Respiratory: Reports: Shortness of Breath (She is mildly hard of hearing but does not wear hearing aids.), Pleuritic Chest Pain (Mild component of pleuritic chest pain with deep breathing since she fell and injured her left). Denies: Wheezing, Cough, Sputum ( anterolateral thorax), Hemoptysis Cardiovascular: Reports: Chest Pain, Blood Pressure Problem (See history of present illness), Dyspnea on Exertion (Mild lower extremities chronically), Edema (Occasional.), Lightheadedness. Denies: Claudication ( usually runs a little on the low side with medications that she is taking), Orthopnea, Palpitations Endocrine: Reports: Fatigue GI/Abdominal: Reports: Diarrhea (Chronic diarrhea since having her gallbladder removed. Is on Colestid for this). Denies: Abdominal Pain : Reports: Frequency, Incontinence, Urgency Musculoskeletal: Reports: Back Pain (Both stress and urge components), Joint Pain ( on echo back pain arthritis knees hips and shoulders. Has had left shoulder surgery ) Skin: Reports: Bruising (Bruises easily from being on Plavix.) Neurological: Reports: No Symptoms Psychiatric: Reports: No Symptoms Hematologic/Lymphatic: Reports: No Symptoms Immunologic: Reports: No Symptoms ED EXAM, GENERAL - Physical Exam Exam: See Below Exam Limited By: No Limitations General Appearance: Alert, WD/WN, No Apparent Distress, Other (Vital signs are stable temperature 36.3. Sinus bradycardia at 52/m respiratory rate of 20 with sats of 96% on room air. BP is 113/69) Eye Exam: Bilateral Eye: Normal Inspection (No peripheral pallor.) Ears: Normal TMs Throat/Mouth: Normal Inspection, Normal Lips, Normal Oropharynx Head: Atraumatic, Normocephalic Neck: Normal Inspection, Limited Range of Motion, Tender Lateral, Other (She has had carotid ultrasounds performed because she's had a TIA. 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 No: Carotid Bruit, Lymphadenopathy (L) (She states no different than normal.), Lymphadenopathy (R) Respiratory/Chest: Respiratory Distress (Mild tachypnea.), Decreased Breath Sounds (Breath sounds are diminished lower 25% lung vines bilaterally. Breasts very mild splinting on the left side). No: Rales, Rhonchi, Wheezing Cardiovascular: Normal Peripheral Pulses, Regular Rate, Rhythm, No Gallop, No Murmur, No Rub. No: No Edema Peripheral Pulses: 1+: Posterior Tibial (L), Posterior Tibial (R), Dorsalis Pedis (L), Dorsalis Pedis (R) GI/Abdominal: Normal Bowel Sounds, Soft, No Organomegaly, No Mass, Pelvis Stable , Tender. No: Guarding, Rigid, Rebound Back Exam: Normal Inspection, Decreased Range of Motion, Other (No obvious abrasions contusions or hematomas to the back. There is some pain on palpation of the posterior lateral ribs 789 and 10 without any overlying bruising. This is at the posterior axillary line) Extremities: Other (Show some some pain over the left mid buttock and SI joint on the left side. Greater trochanteric process is normal. No bruising appreciated in the left buttock or hip area. She is wearing a depends.) Neurological: Alert, Oriented, CN II-XII Intact, Normal Cognition Psychiatric: Normal Affect, Normal Mood Skin Exam: Warm, Dry, Intact, Normal Color, No Rash EKG INTERPRETATION EKG Date: 03/22/19 Time: 10:12 Rhythm: NSR Rate (Beats/Min): 66 (Frequent multifocal PVCs) Pampa: LAD-Left Pampa Deviation (-56 has a left anterior fascicular block pattern ) P-Wave: Enlarged (Consider left atrial hypertrophy) QRS: Other (Left ventricular hypertrophy pattern) ST-T: Other QT: Prolonged EKG Interpretation Comments: Abnormal ECG Course - Vital Signs Last Recorded V/S: Last Vital Signs Temp 36.3 C 03/22/19 09:39 Pulse 52 L 03/22/19 09:39 Resp 20 03/22/19 09:39 BP 113/69 03/22/19 09:39 Pulse Ox 96 03/22/19 09:39 Orthostatic Blood Pressure [ 125/69 Standing] Orthostatic Blood Pressure [ 114/56 Sitting] Orthostatic Blood Pressure [ 96/49 Supine] - Orders/Labs/Meds Orders: Active Orders 24 hr Category Date Time Status EKG Documentation Completion [RC] STAT Care 03/22/19 09:56 Active Orthostatic Vital Signs [RC] ASDIRECTED Care 03/22/19 09:55 Active Labs: Laboratory Tests 03/22/19 03/22/19 03/22/19 Range/Units 10:50 10:50 10:50 WBC 9.25 (3.98-10.04) K/mm3 RBC 4.48 (3.98-5.22) M/mm3 Hgb 13.9 (11.2-15.7) gm/L Hct 41.7 (34.1-44.9) % MCV 93.1 (79.4-94.8) fl MCH 31.0 (25.6-32.2) pg MCHC 33.3 (32.2-35.5) g/dl RDW Std Deviation 46.8 H (36.4-46.3) fL Plt Count 201 (182-369) K/mm3 MPV 11.1 (9.4-12.3) fl Neutrophils % (Manual) 58 (40-60) % Band Neutrophils % 0 (0-10) % Lymphocytes % (Manual) 31 (20-40) % Atypical Lymphs % 0 % Monocytes % (Manual) 9 (2-10) % Eosinophils % (Manual) 2 (0.7-5.8) % Basophils % (Manual) 0 L (0.1-1.2) Toxic Granulation 1+ slight Platelet Estimate Adequate RBC Morph Comment Normal PT 10.8 (9.5-12.1) SECONDS INR 0.99 APTT 29 (24-31) SECONDS Sodium 141 (136-145) mEq/L Potassium 4.9 (3.5-5.1) mEq/L Chloride 108 H (98-107) mEq/L Carbon Dioxide 21 (21-32) mEq/L Anion Gap 16.9 H (5-15) BUN 50 H D (7-18) mg/dL Creatinine 1.5 H (0.55-1.02) mg/dL Est Cr Clr Drug Dosing 21.84 mL/min Estimated GFR (MDRD) 33 (>60) mL/min BUN/Creatinine Ratio 33.3 H (14-18) Glucose 120 H (83-115) mg/dL Calcium 9.2 (8.5-10.1) mg/dL Magnesium 2.2 (1.8-2.4) mg/dl Total Bilirubin 1.4 H (0.2-1.0) mg/dL AST 14 L (15-37) U/L ALT 24 (14-59) U/L Alkaline Phosphatase 72 (46-116) U/L C-Reactive Protein < 0.2 (<1.0) mg/dL NT-Pro-B Natriuret Pep (0-450) pg/mL Total Protein 7.0 (6.4-8.2) g/dl Albumin 4.0 (3.4-5.0) g/dl Globulin 3.0 gm/dL Albumin/Globulin Ratio 1.3 (1-2) Lipase 249 (73-393) U/L 03/22/19 Range/Units 10:50 WBC (3.98-10.04) K/mm3 RBC (3.98-5.22) M/mm3 Hgb (11.2-15.7) gm/L Hct (34.1-44.9) % MCV (79.4-94.8) fl MCH (25.6-32.2) pg MCHC (32.2-35.5) g/dl RDW Std Deviation (36.4-46.3) fL Plt Count (182-369) K/mm3 MPV (9.4-12.3) fl Neutrophils % (Manual) (40-60) % Band Neutrophils % (0-10) % Lymphocytes % (Manual) (20-40) % Atypical Lymphs % % Monocytes % (Manual) (2-10) % Eosinophils % (Manual) (0.7-5.8) % Basophils % (Manual) (0.1-1.2) Toxic Granulation Platelet Estimate RBC Morph Comment PT (9.5-12.1) SECONDS INR APTT (24-31) SECONDS Sodium (136-145) mEq/L Potassium (3.5-5.1) mEq/L Chloride (98-107) mEq/L Carbon Dioxide (21-32) mEq/L Anion Gap (5-15) BUN (7-18) mg/dL Creatinine (0.55-1.02) mg/dL Est Cr Clr Drug Dosing mL/min Estimated GFR (MDRD) (>60) mL/min BUN/Creatinine Ratio (14-18) Glucose (83-115) mg/dL Calcium (8.5-10.1) mg/dL Magnesium (1.8-2.4) mg/dl Total Bilirubin (0.2-1.0) mg/dL AST (15-37) U/L ALT (14-59) U/L Alkaline Phosphatase (46-116) U/L C-Reactive Protein (<1.0) mg/dL NT-Pro-B Natriuret Pep 1335 H (0-450) pg/mL Total Protein (6.4-8.2) g/dl Albumin (3.4-5.0) g/dl Globulin gm/dL Albumin/Globulin Ratio (1-2) Lipase (73-393) U/L Meds: Medications Discontinued Medications Generic Name Dose Route Start Last Admin Trade Name Freq PRN Reason Stop Dose Admin Sodium Chloride 1,000 mls @ 150 mls/hr 03/22/19 10:00 03/22/19 10:42 Normal Saline IV 150 mls/hr ASDIRECTED HAYLEY Administration Sodium Chloride 1,000 mls @ 500 mls/hr 03/22/19 11:30 03/22/19 11:44 Normal Saline IV 500 mls/hr ASDIRECTED HAYLEY Administration Iohexol 100 ml 03/22/19 12:00 03/22/19 12:55 Omnipaque-300 IVPUSH 03/22/19 12:01 80 ml ONETIME ONE Administration Lorazepam 1 mg 03/22/19 11:46 03/22/19 12:23 Ativan IVPUSH 03/22/19 11:47 1 mg ONETIME ONE Administration Sodium Chloride 10 ml 03/22/19 12:00 03/22/19 12:25 Saline Flush FLUSH 10 ml ONETIME PRN Administration IV FLUSH - Radiology Interpretation Free Text/Narrative:: 78-year-old female presents to the ED after falling 2 days ago in her own home. She lives in [facility] with assisted living. States she got tripped up on a rug going into her bathroom and fell against the bathtub landing hard on her left lateral thorax. She has markedly contused dark purple bruising of the inferior lower quadrant of her left breast and tenderness to the ribs 7 8//10 clinically on the anterior lateral aspect as well as posterior lateral aspect of the chest wall. No guarding appreciated on deep palpation of the left upper quadrant of her abdomen. She states that she does feel lightheaded dizzy upon standing however. She is on Plavix for many years because of coronary disease and likely has [address] Vital signs are stable at this time. Plan x- ray of her pelvis will be performed. Routine lab work. IV will be normal saline at 150 mils per hour. If labs are okay she will have CT of the abdomen and pelvis and chest performed with IV contrast. When she was here in December she had normal renal function with a creatinine of 0.9. Being on Plavix place her at much higher risk of intra-abdominal internal organ injury such as kidney or spleen. - Re-Assessments/Exams Free Text/Narrative Re-Assessment/Exam: 03/22/19 11:19 Part of the labs are back. White count is 9.25 with 58% neutrophils and no band cells reported. Hemoglobin is 13.9 with hematocrit of 41.7. Platelet count is 201,000. PT is 10.8 with an INR of 0.99. PTT is 29. Sure the pelvis reveals no obvious fractures. There is some sclerosis around both SI joints suggesting the possibility of Paget's disease. Both hips are severely degenerative. 03/22/19 11:27 Serum sodium is 141 with a potassium of 4.9. Chloride is 108 with a bicarbonate of 21. Anion gap is mildly elevated at 16.9. BUN is 50 and again mild dehydration. Creatinine is 1.5. Estimated GFR is 33 i.e. stage III chronic kidney disease. Glucose is 120 with a calcium of 9.2. Magnesium is 2.2. Bilirubin is 1.4. AST is 14 ALT is 24 alk phosphatase 72 C-reactive protein less than 0.2 total protein 7.0 lipase 249. BNP is pending. Give the patient a 500 milk fluid bolus to improve her renal function status is a little pursue CT of the chest abdomen pelvis with IV contrast. 03/22/19 13:33 BNP is elevated at 1335. IV fluids will be discontinued. CT scan of the chest abdomen and pelvis reveals no pulmonary contusion and no pneumothorax. There is diffuse emphysematous changes in both lungs. No pleural effusions evident. There is diffuse atherosclerotic change noted within the thoracic aorta without aneurysm. Mediastinum and hilar regions show adenopathy or mass. Coronary artery calcification is appreciated. No pericardial thickening isn't noted. Degenerative changes appreciated within both shoulders as well as previous right shoulder surgery. Degenerative changes noted throughout multiple levels of the thoracic spine. Cardiac silhouette is essentially normal. She appears to have fractures of the anterior lateral aspects of ribs 10 and 11. No injury to the spleen identified or kidney. The spleen appears to have several small lesions within it did not clear what this represents. There is also an abnormality in the tail of the pancreas. Surgical clips right upper quadrant suggestive of previous cholecystectomy 03/22/19 13:56 CT of the abdomen shows liver revealing no focal parenchymal abnormality. Surgical clips are seen from prior cholecystectomy. Common bile duct is enlarged which appears as a stable finding from previous CT exam and likely residual from prior cholecystectomy. Spleen appears within normal limits available and showed no nodule kidneys show symmetric contrast enhancement without hydronephrosis or discrete mass. Pancreas is within normal limits. Aorta shows diffuse atherosclerotic change which continues into the iliac vessels. No aneurysm is seen. Small fat-containing anterior bowel wall hernia seen below the umbilicus. No retroperitoneal adenopathy or mesenteric abdomen maladies are seen no pelvic mass or adenopathy is identified appendix is not visualized. No free fluid or inflammatory changes are seen in the pelvis. Bone window settings were reviewed and shows diffuse degenerative change within the spine and both hips. Spondylitic defects are seen at L5-S1 with spondylolisthesis at L5-S1 measuring approximate 9 mm. No acute osseous abnormalities were identified. Just the findings with the patient and her daughter. It took a very long time to get the CT is completed. It appears that her major injuries are minor fractures of the anterior aspects of 10th and 11th ribs on the left side. Of note the radiologist did not identify these fractures on his report. Patient states that she's been trying Tylenol with no relief. She cannot take NSAIDs because she is on Plavix. She wishes to try narcotic pain medication and therefore prescription written for [place] 5/325 mg 1 tablet every 6-8 hours as necessary for pain relief. She'll be staying with her daughter who can watch over her. Advised MiraLAX powder 17 g daily to prevent constipation from the narcotic pain medication. She is to follow-up with her personal care provider in 8 days time Departure - Departure Time of Disposition: 14:23 Disposition: Home, Self-Care 01 Condition: Fair Clinical Impression: Fracture, ribs Qualifiers: Encounter type: initial encounter Rib fracture type: multiple ribs Fracture type: closed Laterality: left Qualified Code(s): S22.42XA - Multiple fractures of ribs, left side, initial encounter for closed fracture - Discharge Information *PRESCRIPTION DRUG MONITORING PROGRAM REVIEWED*: Not Applicable *COPY OF PRESCRIPTION DRUG MONITORING REPORT IN PATIENT MORELIA: Not Applicable Prescriptions: Acetaminophen/HYDROcodone [[place] 325-5 MG] 1 tab PO Q6H #24 tablet Instructions: Rib Fracture, [id number] Referrals: Gibran Obregon MD [Primary Care Provider] - Forms: ED Department Discharge Additional Instructions: Evaluation in the emergency room today in regards to fall at home 2 days ago with blunt trauma to the left anterior lateral chest wall. Resulted in significant contusion to the inferior lower quadrant of the left breast and CT documents minimally displaced fractures of ribs #10 and 11 anterior laterally. It reveals no injury to the underlying lung with no pleural effusion or bruise lung. Emphysematous changes are appreciated in both lungs. CT of the abdomen reveals no evidence of injury to the underlying spleen or kidney or pancreas that lie under these ribs. Advanced degenerative changes are appreciated in both the thoracic and lumbar spine. Treatment is therefore time to heal which is usually 6 weeks for the ribs to completely heal. They will likely be fairly painful for the next 10-12 days and then slowly start to improve. We have to sleep in a easy chair or up against pillows on a couch as it's very difficult to get him out of bed with fractured ribs. I did prescribe pain medication Washington 5/325 mg strength. 1 tablet every 6 hours needed for relief of pain. I would suggest stopping her cholestyramine while you're on the pain pill at to try and prevent constipation from occurring. Follow-up with personal care physician if any further problems occur. Of note bruising of the breast will likely take at least 2 weeks and probably a little longer to go away. - My Orders Last 24 Hours: My Active Orders 03/22/19 09:55 Orthostatic Vital Signs [RC] ASDIRECTED 03/22/19 09:56 EKG Documentation Completion [RC] STAT - Assessment/Plan Last 24 Hours: My Active Orders 03/22/19 09:55 Orthostatic Vital Signs [RC] ASDIRECTED 03/22/19 09:56 EKG Documentation Completion [RC] STAT
[2019-03-22] MEDS ORDERED: LORazepam 2 MG/ML SDV IVPUSH ONE (11:46)
[2019-03-22] MEDS ORDERED: Iohexol 647 MG/ML 100 ML Bottle IVPUSH ONE (12:00)
[2019-03-22] MEDS ORDERED: Sodium Chloride 0.9% 10 ML Syringe FLUSH PRN (12:00)
--- NOTE | 2019-03-22 13:34 | CT ---
CT chest Technique: Multiple axial sections were obtained through the chest. Intravenous contrast was utilized. Comparison: Previous CT chest study of 06/15/14 performed as a pulmonary angiogram protocol. Findings: Atherosclerotic change is noted within the thoracic aorta without aneurysm. Mediastinum and hilar regions show no adenopathy or mass. Minimal coronary artery calcification is seen. No pericardial thickening is seen. Emphysematous change is noted throughout both lungs. No acute parenchymal change is seen. No pulmonary contusion or pleural effusions are seen. No pneumothorax is identified. Degenerative change is seen within both shoulders as well as previous right shoulder surgery. Degenerative change is noted throughout the spine. No acute osseous abnormality is appreciated. Impression: 1. Incidental findings. Nothing acute is appreciated on CT study of the chest. Diagnostic code #2 CT abdomen and pelvis Technique: Multiple axial sections were obtained from above the dome of the diaphragm inferiorly through the pubic symphysis. Intravenous contrast was utilized. No oral contrast has been given. Comparison: Prior CT abdomen and pelvis exam of 06/15/15. Findings: Liver shows no focal parenchymal abnormality. Surgical clips are seen from prior cholecystectomy. Common bile duct is enlarged which appears as a stable finding from prior CT exam and likely residual from prior cholecystectomy. Spleen appears within normal limits. Adrenal glands show no nodule. Kidney show symmetric contrast enhancement without hydronephrosis or discrete mass. Pancreas is within normal limits. Aorta shows atherosclerotic change which continues into the iliac vessels. No aneurysm is seen. Small fat-containing anterior abdominal wall hernia seen below the umbilicus. No retroperitoneal adenopathy or mesenteric abnormalities are seen. No pelvic mass or adenopathy is seen. Appendix not visualized with certainty. No free fluid or inflammatory change is seen. Bone window settings were reviewed and shows diffuse degenerative change within the spine and within both hips. Spondylolytic defects are seen at L5-S1 with spondylolisthesis at L5-S1 measuring approximately 9 mm. No acute osseous abnormality is appreciated. Scoliosis noted within the spine. Impression: 1. Incidental findings. Nothing acute is seen on CT study of the abdomen and pelvis. Diagnostic code #2
--- NOTE | 2019-03-22 19:34 | CR ---
Pelvis: AP view of the pelvis was obtained. Comparison: No prior pelvis x-ray. Bony overgrowth is seen of both superior acetabulum. Mild joint space narrowing is seen within the left hip. Spurring is noted off the pubic symphysis. Sacroiliac joints are within normal limits. Bony structures are osteopenic. Impression: 1. Osteopenia and mild degenerative change. 2. Nothing acute is appreciated on AP pelvis exam. Diagnostic code #2
== END 2019-03-22 14:49 | disposition home or self-care (01) ==
LOC: JD.ED 09:25
DX: S22.42XA Multiple fractures of ribs, left side, initial encounter for closed fracture (principal); F41.9 Anxiety disorder, unspecified; F32.9 Major depressive disorder, single episode, unspecified; I11.0 Hypertensive heart disease with heart failure; I50.9 Heart failure, unspecified; I25.10 Atherosclerotic heart disease of native coronary artery without angina pectoris; Z79.899 Other long term (current) drug therapy; Z86.73 Personal history of transient ischemic attack (TIA), and cerebral infarction without residual deficits; W18.2XXA Fall in (into) shower or empty bathtub, initial encounter
CPT/HCPCS: 36415; 71260; 72170; 74177; 80053; 83690; 83735; 83880; 85007; 85027; 85610; 85730; 86140; 93005; 96361; 96374; 99284; J2060; J7040; Q9967; 93010

== ENCOUNTER 2019-12-03 17:31 | Emergency (ER) | payer MEDICARE, BC ==
[2019-12-03] MEDS ORDERED: Aspirin 81 MG Tab.Chew PO ONE (18:31)
--- NOTE | 2019-12-03 18:39 | EDM.PDOC ---
ED HPI GENERAL MEDICAL PROBLEM - General Chief Complaint: Cardiovascular Problem Stated Complaint: JAW PAIN/PAIN IN BOTH ARMS LEADING TO CHEST Time Seen by Provider: 12/03/19 18:19 Source of Information: Reports: Patient History Limitations: Reports: No Limitations - History of Present Illness INITIAL COMMENTS - FREE TEXT/NARRATIVE: Patient is an 79-year-old female who presents from [facility] with complaints of chest and bilateral arm pain that radiates up into her jaw. Patient states his symptoms started last night and improved but never went away. Symptoms have been getting progressively worse today. Currently rates the pain as 6 out of 10. Denies any shortness of breath, however she has had some episodes of diaphoresis. She has not been nauseous but does states she is had 3 loose stools today. Patient has a history of MIs requiring stenting in the past. She has not taken any aspirin thus far today. Bilateral Arm Pain Score (Numeric/FACES): 6 - Related Data Allergies Allergy/AdvReac Type Severity Reaction Status Date / Time No Known Allergies Allergy Verified 03/22/19 09:37 Home Meds: Home Meds Carvedilol [Coreg] 6.25 mg PO BID 01/28/17 [History] Clopidogrel [Plavix] 75 mg PO DAILY 01/28/17 [History] Folic Acid 1 mg PO BEDTIME 01/28/17 [History] Losartan/Hydrochlorothiazide [Hyzaar 50-12.5 Tablet] 12.5 - 50 each PO BEDTIME 01/28/17 [History] Rosuvastatin [Crestor] 20 mg PO BEDTIME 01/28/17 [History] Acetaminophen [Tylenol Arthritis Pain] 650 mg PO BID 03/05/18 [History] B-Complex with Vitamin C [Super B Complex-Vitamin C] 1 tab PO ACBREAKFAST [History] Naproxen Sodium [Aleve] 220 mg PO ACBREAKFAST 03/05/18 [History] Pantoprazole [ProTONIX] 20 mg PO ACBREAKFAST 03/05/18 [History] Sertraline [Zoloft] 50 mg PO BEDTIME 03/05/18 [History] Cholestyramine (With Sugar) [Questran Powder] 4 gm PO DAILY 12/22/18 [History] Spironolactone [Aldactone] 25 mg PO BID #60 tablet 12/22/18 [Rx] Acetaminophen/HYDROcodone [Haworth 325-5 MG] 1 tab PO Q6H #24 tablet 03/22/19 [Rx] Fluticasone Propionate [Flonase] 2 sprays SOUMYA DAILY 03/22/19 [History] Furosemide [Lasix] 20 mg PO DAILY 03/22/19 [History] Lidocaine 1 patch TOP DAILY 03/22/19 [History] Past Medical History HEENT History: Reports: Cataract, Impaired Vision Other HEENT History: Wears glasses Cardiovascular History: Reports: Heart Failure, High Cholesterol, Hypertension, [place], Stents Other Cardiovascular History: atherosclerotic heart disease Gastrointestinal History: Reports: Chronic Constipation, Chronic Diarrhea Genitourinary History: Reports: Renal Calculus, Urinary Incontinence Other Genitourinary History: frequency and urgency; wears depends at night 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 hard of hearing. wears glasses GI Surgical History: Reports: Appendectomy, Cholecystectomy Female Surgical History: Reports: Hysterectomy Social & Family History - Family History Cardiac: Reports: [place] GI: Reports: Cirrhosis - Tobacco Use Smoking Status *Q: Never Smoker - Caffeine Use Caffeine Use: Reports: None - Living Situation & Occupation Living situation: Reports: Occupation: Retired ED ROS GENERAL - Review of Systems Review Of Systems: Comprehensive ROS is negative, except as noted in HPI. ED EXAM, GENERAL - Physical Exam Exam: See Below Exam Limited By: No Limitations General Appearance: Alert, WD/WN, No Apparent Distress Respiratory/Chest: No Respiratory Distress, Lungs Clear, Normal Breath Sounds, No Accessory Muscle Use, Chest Non-Tender Cardiovascular: Normal Peripheral Pulses, Regular Rate, Rhythm, No Edema, No Gallop, No JVD, No Murmur, No Rub GI/Abdominal: Normal Bowel Sounds, Soft, Non-Tender, No Organomegaly, No Distention, No Abnormal Bruit, No Mass Extremities: Normal Inspection, Normal Range of Motion, Non-Tender, Normal Capillary Refill, Pedal Edema (Trace pitting bilateral) Neurological: Alert, Oriented, CN II-XII Intact, Normal Cognition, Normal Gait, Normal Reflexes, No Motor/Sensory Deficits Psychiatric: Normal Affect, Normal Mood Skin Exam: Warm, Dry, Intact, Normal Color, No Rash Course - Vital Signs Last Recorded V/S: Last Vital Signs Temp 98.4 F 12/03/19 19:24 Pulse 84 12/03/19 19:24 Resp 19 12/03/19 19:24 BP 145/104 H 12/03/19 19:24 Pulse Ox 93 L 12/03/19 19:24 - Orders/Labs/Meds Orders: Active Orders 24 hr Category Date Time Status EKG Documentation Completion [RC] ASDIRECTED Care 12/03/19 18:02 Active Chest 1V Frontal [CR] Stat Exams 12/03/19 18:05 Taken EKG 12 Lead [EK] Stat Ther 12/03/19 18:02 Ordered Labs: Laboratory Tests 12/03/19 12/03/19 12/03/19 Range/Units 17:57 17:57 17:57 WBC 9.26 (3.98-10.04) K/mm3 RBC 4.43 (3.98-5.22) M/mm3 Hgb 13.9 (11.2-15.7) gm/dl Hct 43.1 (34.1-44.9) % MCV 97.3 H D (79.4-94.8) fl MCH 31.4 (25.6-32.2) pg MCHC 32.3 (32.2-35.5) g/dl RDW Std Deviation 43.4 (36.4-46.3) fL Plt Count 210 (182-369) K/mm3 MPV 10.8 (9.4-12.3) fl Neut % (Auto) 58.6 (34.0-71.1) % Lymph % (Auto) 31.2 (19.3-51.7) % Marion % (Auto) 7.5 (4.7-12.5) % Eos % (Auto) 1.9 (0.7-5.8) Baso % (Auto) 0.5 (0.1-1.2) % Neut # (Auto) 5.46 (1.56-6.13) K/mm3 Lymph # (Auto) 2.91 (1.18-3.74) K/mm3 Marion # (Auto) 0.70 H (0.24-0.36) K/mm3 Eos # (Auto) 0.18 (0.04-0.36) K/mm3 Baso # (Auto) 0.05 (0.01-0.08) K/mm3 Manual Slide Review Not Reportable PT 10.6 (9.7-12.0) SECONDS INR 0.97 Sodium (136-145) mEq/L Potassium (3.5-5.1) mEq/L Chloride (98-107) mEq/L Carbon Dioxide (21-32) mEq/L Anion Gap (5-15) BUN (7-18) mg/dL Creatinine (0.55-1.02) mg/dL Est Cr Clr Drug Dosing mL/min Estimated GFR (MDRD) (>60) mL/min BUN/Creatinine Ratio (14-18) Glucose (83-115) mg/dL Calcium (8.5-10.1) mg/dL Total Bilirubin (0.2-1.0) mg/dL AST (15-37) U/L ALT (14-59) U/L Alkaline Phosphatase (46-116) U/L Creatine Kinase 82 (26-192) U/L Troponin I 0.403 H* (0.00-0.056) ng/mL NT-Pro-B Natriuret Pep (0-450) pg/mL Total Protein (6.4-8.2) g/dl Albumin (3.4-5.0) g/dl Globulin gm/dL Albumin/Globulin Ratio (1-2) 12/03/19 12/03/19 Range/Units 17:57 17:57 WBC (3.98-10.04) K/mm3 RBC (3.98-5.22) M/mm3 Hgb (11.2-15.7) gm/dl Hct (34.1-44.9) % MCV (79.4-94.8) fl MCH (25.6-32.2) pg MCHC (32.2-35.5) g/dl RDW Std Deviation (36.4-46.3) fL Plt Count (182-369) K/mm3 MPV (9.4-12.3) fl Neut % (Auto) (34.0-71.1) % Lymph % (Auto) (19.3-51.7) % Marion % (Auto) (4.7-12.5) % Eos % (Auto) (0.7-5.8) Baso % (Auto) (0.1-1.2) % Neut # (Auto) (1.56-6.13) K/mm3 Lymph # (Auto) (1.18-3.74) K/mm3 Marion # (Auto) (0.24-0.36) K/mm3 Eos # (Auto) (0.04-0.36) K/mm3 Baso # (Auto) (0.01-0.08) K/mm3 Manual Slide Review PT (9.7-12.0) SECONDS INR Sodium 145 (136-145) mEq/L Potassium 4.1 (3.5-5.1) mEq/L Chloride 108 H (98-107) mEq/L Carbon Dioxide 24 (21-32) mEq/L Anion Gap 17.1 H (5-15) BUN 41 H (7-18) mg/dL Creatinine 1.3 H (0.55-1.02) mg/dL Est Cr Clr Drug Dosing 24.79 mL/min Estimated GFR (MDRD) 39 (>60) mL/min BUN/Creatinine Ratio 31.5 H (14-18) Glucose 148 H (83-115) mg/dL Calcium 8.7 (8.5-10.1) mg/dL Total Bilirubin 0.9 (0.2-1.0) mg/dL AST 26 (15-37) U/L ALT 36 (14-59) U/L Alkaline Phosphatase 97 (46-116) U/L Creatine Kinase (26-192) U/L Troponin I (0.00-0.056) ng/mL NT-Pro-B Natriuret Pep 412 (0-450) pg/mL Total Protein 7.5 (6.4-8.2) g/dl Albumin 3.8 (3.4-5.0) g/dl Globulin 3.7 gm/dL Albumin/Globulin Ratio 1.0 (1-2) Meds: Medications Discontinued Medications Generic Name Dose Route Start Last Admin Trade Name Freq PRN Reason Stop Dose Admin Aspirin 324 mg 12/03/19 18:31 12/03/19 19:16 Aspirin PO 12/03/19 18:32 324 mg ONETIME ONE Administration Heparin Sodium (Porcine) 4,000 units 12/03/19 18:57 12/03/19 19:16 Heparin Sodium IVPUSH 12/03/19 18:58 4,000 units .BOLUS ONE Administration Heparin Sodium/Dextrose 25,000 units in 500 mls @ 18.071 mls/hr 12/03/19 19: 00 12/03/19 19:19 Heparin 25,000 Units In D5w 500 Ml IV 12 units/kg/hr TITRATE HAYLEY 18.071 mls/hr Administration Protocol 12 UNITS/KG/HR Sodium Chloride 1,000 mls @ 75 mls/hr 12/03/19 19:15 12/03/19 19:20 Normal Saline IV 75 mls/hr ASDIRECTED HAYLEY Administration Nitroglycerin 0.4 mg 12/03/19 18:57 12/03/19 19:16 Nitrostat SL 0.4 mg Q5M PRN Administration Chest Pain - Re-Assessments/Exams Free Text/Narrative Re-Assessment/Exam: 12/03/19 19:00 Hematology was significant for chloride of 108, anion gap 17.1, BUN 41, creatinine 1.3. Troponin is elevated at 0.403. Chest x-ray is significant for a right lower lobe infiltrate this could be fluid versus pneumonia; however, patient has had no cough, fever, or rigors and her white count is not elevated. Images have been pushed to [facility]. Called [facility] and spoke with loss control consultant, Dr. Collins. He recommended nitro sL, heparin gtt and beta brandt. Nitro and heparin gtt per NSTEMI protocol has been ordered. Pt is on metoprolol XL daily. Spoke with hospitalist, Dr. Solis , and he accepted the patient for transfer with a direct admission. [facility] has been notified and will be in route for transfer. Departure - Departure Time of Disposition: 19:00 Disposition: DC/Tfer to Acute Hospital 02 Reason for Transfer *Q: Primary PCI Indicated Condition: Fair Clinical Impression: Non-STEMI (non-ST elevated myocardial infarction) Referrals: Gibran Obregon MD [Primary Care Provider] - Forms: ED Department Discharge Sepsis Event Note - Evaluation Sepsis Screening Result: No Definite Risk - Focused Exam Vital Signs: Vital Signs Temp Pulse Resp BP BP Pulse Ox 12/03/19 19:24 98.4 F 84 19 145/104 H 93 L 12/03/19 19:16 180/107 H 12/03/19 17:48 97.0 F 82 19 163/111 H 97 Date Exam was Performed: 12/03/19 Time Exam was Performed: 23:21 - My Orders Last 24 Hours: My Active Orders 12/03/19 18:02 EKG Documentation Completion [RC] ASDIRECTED EKG 12 Lead [EK] Stat 12/03/19 18:05 Chest 1V Frontal [CR] Stat - Assessment/Plan Last 24 Hours: My Active Orders 12/03/19 18:02 EKG Documentation Completion [RC] ASDIRECTED EKG 12 Lead [EK] Stat 12/03/19 18:05 Chest 1V Frontal [CR] Stat
[2019-12-03] MEDS ORDERED: Nitroglycerin 0.4 MG Tab.SL SL PRN (18:57)
[2019-12-03] MEDS ORDERED: Heparin Sodium 5,000 Units/ML Vial IVPUSH ONE (18:57)
[2019-12-03] MEDS ORDERED: Heparin Sodium/D5W 25,000 UNITS/500 ML BAG IV SCH (19:00)
[2019-12-03] MEDS ORDERED: Sodium Chloride 0.9% 1,000 ML IV SCH (19:15)
[2019-12-03 19:25] VITALS: BP 145/104; PULSE 84
--- NOTE | 2019-12-04 07:02 | CR ---
Chest: Portable view of the chest was obtained. Comparison: Prior chest CT study of 03/22/19 and chest x-ray of 12/22/18. Heart is enlarged. Tortuous thoracic aorta is seen. Lungs are clear with no acute parenchymal change. Previous surgery is noted within the right shoulder. Degenerative change is also noted within both shoulders. Impression: 1. Mild cardiomegaly. 2. Other findings as noted above. Nothing acute is appreciated. Diagnostic code #2 This report was dictated in [place] Standard Time
== END 2019-12-03 19:40 ==
LOC: JD.ED 17:31
DX: I21.4 Non-ST elevation (NSTEMI) myocardial infarction (principal); I11.0 Hypertensive heart disease with heart failure; I50.9 Heart failure, unspecified; I25.2 Old myocardial infarction; I25.10 Atherosclerotic heart disease of native coronary artery without angina pectoris; F41.9 Anxiety disorder, unspecified; F32.9 Major depressive disorder, single episode, unspecified; Z95.5 Presence of coronary angioplasty implant and graft; Z86.73 Personal history of transient ischemic attack (TIA), and cerebral infarction without residual deficits; Z79.899 Other long term (current) drug therapy
CPT/HCPCS: 36415; 71045; 80053; 82550; 83880; 84484; 85025; 85027; 85610; 93005; 96365; 99285; A9270; J1644; J7030; 93010